=== PATIENT | female | born 1980 | race Caucasian/White ===

== ENCOUNTER 2020-02-21 12:01 | Outpatient (REF) | payer BC, SELFPAY | END 2020-02-21 12:02 | disposition home or self-care (01) | LOC: HO.LAB 12:01 | PROVIDERS: PCP Internal Medicine; Visit Provider Internal Medicine | DX: Z20.828 Contact with and (suspected) exposure to other viral communicable diseases (principal) | CPT/HCPCS: C9803; U0003 ==

== ENCOUNTER 2023-02-23 07:12 | Outpatient (REF) | payer OTHER, SELFPAY ==
[2023-02-23 07:56] LABS: Alanine Aminotransferase 10 U/L (0-31); Albumin Level 4.5 g/dL (3.5-5.0); Alkaline Phosphatase 55 U/L (39-117); Anion Gap 13 (12-20); Aspartate Amino Transferase 17 U/L (5-31); Bilirubin Total 0.5 mg/dL (0.0-1.0); Blood Urea Nitrogen 13 mg/dL (9-16); Calcium 9.3 mg/dL (8.4-10.2); Carbon Dioxide 24 mmol/L (22-29); Chloride 108 mmol/L (96-108); Cholesterol 179 mg/dL (<200); Estimated Glomerular Filt Rate > 60; Glucose Random 95 mg/dL (60-115); HDL Cholesterol 48 mg/dL (>40); LDL Cholesterol Calculated 111 mg/dL (<100); Potassium 4.5 mmol/L (3.3-5.1); Sodium 140 mmol/L (135-145); Total Protein 7.4 g/dL (6.5-8.0); Triglycerides 100 mg/dL (<150)
[2023-02-23 08:10] LABS: Thyroid Stimulating Hormone 1.25 uIU/mL (0.32-4.0)
== END 2023-02-23 07:13 | disposition home or self-care (01) ==
LOC: HO.LAB 07:12
PROVIDERS: PCP Internal Medicine; Visit Provider Physician Assistant Medical
DX: Z00.00 Encounter for general adult medical examination without abnormal findings (principal)
CPT/HCPCS: 36415; 80053; 80061; 84443

== ENCOUNTER 2023-09-25 15:35 | Outpatient (REF) | payer OTHER, SELFPAY ==
[2023-09-27 12:42] LABS: H Pylori Breath Test Negative (Negative)
== END 2023-09-25 15:36 | disposition home or self-care (01) ==
LOC: HO.LNP 15:35
PROVIDERS: Visit Provider Internal Medicine Gastroenterology
DX: Z11.2 Encounter for screening for other bacterial diseases (principal)
CPT/HCPCS: 83013

== ENCOUNTER 2023-10-16 14:03 | Outpatient (REF) | payer OTHER, SELFPAY ==
[2023-10-17 08:19] LABS: Immunoglobulin A 212 mg/dL (47-310)
[2023-10-17 20:53] LABS: Transglutaminase Ab IgG 1.2 U/mL
== END 2023-10-16 14:04 | disposition home or self-care (01) ==
LOC: HO.LAB 14:03
PROVIDERS: PCP Internal Medicine; Visit Provider Nurse Practitioner Primary Care
DX: R14.0 Abdominal distension (gaseous) (principal)
CPT/HCPCS: 36415; 82784; 86364

== ENCOUNTER 2024-08-07 07:50 | Outpatient (REF) | payer OTHER, SELFPAY ==
--- OUTSIDE RECORDS SUMMARY | 2024-08-07 07:54 | XMS_ITS | Clinical Summary ---
Author Organization [facility] [address] [facility] Address [address] [place] [address] Phone Care Team Providers Care Manager Med Surg Name Role Phone Barbie Fitzgerald MD Primary Care Provider [phone] Allergies Active Allergy Reactions Criticality Noted Date Comments Azithromycin 04/10/2020 Other 11/18/2010 Sulfamethoxazole-Trimethoprim Nausea And Vomiting 07/10/2014 Medications LEVONORGESTREL UTRN by intrauterine route. Active traZODone (DESYREL) 100 mg tablet Take 1 tablet (100 mg total) by mouth at bedtime as needed for sleep. 90 tablet 5 Active omeprazole (PriLOSEC) [address] capsule Take 1 capsule (40 mg total) by mouth 1 (one) time each day. 90 each 5 Active Active Problems Problem Noted Date Diagnosed Date GERD (gastroesophageal reflux disease) 5 Insomnia 10/09/2020 Kidney stone 03/06/2013 Depression 07/11/2011 Anxiety 07/11/2011 Immunizations Name Administration Dates Next Due Hepatitis B (Hchyshq-E-Xppgt , Recombivax HB-Adult) 19yo and older 05/29/2013,02/20/2013,01/23/2013 Influenza Quadravalent, MDCK , 0.5ml, preservative free (Flucelvax) 6mo and older 03/03/2023,01/03/2022 Influenza trivalent, with pr eservative (Fluzone; Afluria) 6mo and older 12/24/2019,11/19/2012 Influenza, Unspecified 01/03/2024 Moderna SARS-CoV-2 COVID-19, mRNA, LNP-S, preservative free 05/14/2020,04/29/2020,04/23/2020 PPD Test 11/19/2012 Td Tetanus diptheria (Tdvax) 7yo and older 06/30 Tdap Tetanus diptheria acell ular pertussis (Boostrix; Adacel) 7yo and older 02/12/2010 Surgical History Surgery Date Site/Laterality Comments OTHER SURGICAL HISTORY PROCEDURE: DENIES PREVIOUS SURGERY Medical History Medical History Date Comments Anxiety DX:Anxiety GERD (gastroesophageal reflux disease) 04/17/2024 Family History Medical History Relation Name Comments No Known Problems Brother x2 healthy brothers Breast cancer Cousin Heart attack Father Diabetes Maternal Grandmother CKD Other: CKD Mother HTN, smoker, pr e-DM Breast cancer Mother's side mom's cousin No Known Problems Sister x1 healthy sister Colon cancer Uncle Maternal Blindness Neg Hx Cataracts Neg Hx Glaucoma Neg Hx Macular degeneration Neg Hx Ovarian cancer Neg Hx Strabismus Neg Hx Uterine cancer Neg Hx Relation Name Status Comments Brother Alive Cousin Alive Father Maternal Grandmother Alive Mother Alive Mother's side Sister Alive Uncle Maternal Alive Social History Tobacco Use Types Packs/Day Years Used Date Smoking Tobacco: Former Cigarettes Q uit: 10/14/2020 Smokeless Tobacco: Never Tobacco Cessation:Counseling Given: Not Answered Alcohol Use Standard Drinks/Week Comments Yes 0 (1 standard drink = 0.6 oz pur e alcohol) occ Housing Instability Answer Date Recorde d Are you worried that in the next 2 months you may not have stable housing? No 04/17/2024 Food Access & Nutrition Answer Date Rec orded Do you have access to a vari ety of food including fruits and vegetables? No 04/17/2024 Access to Healthcare Answer Date Record ed Within the last 3 months, kaley w many times did you visit the [...] for your loved ones. For example, child care giver or elderly care for an older adult? [...] Date Recorded What is your living situation? 0 04/17/2024 Comments No Sex and Gender Information Value Date Recorded Sex Assigned at Female 02/14/2024 6:35 PM EST Legal Sex Female 10:41 AM EST Gender Identity Female 02/14/2024 6:35 PM EST Sexual Orientation Straight 02/14/2024 6: 35 PM EST Obstetrics History Para Term AB IAB SAB Ectopic Multiple Livin g Live Births 1 Last Filed Vital Signs Vital Sign Reading Time Taken Comments Blood Pressure 100/70 04/17/2024 10:32 AM EST Pulse 62 04/17/2024 10:32 AM EST Temperature 36.7 ??C (98 ??F) 04/17/2024 10:32 AM EST Respiratory Rate 12 04/17/2024 10:32 AM EST Oxygen Saturation - - Inhaled Oxygen Concentration - - Weight 58.7 kg (129 lb 8 oz) 04/17/2024 10:32 AM EST Height 157.5 cm (5' 2 ) 04/17/2024 10:32 AM EST Body Mass Index 23.69 04/17/2024 10:32 AM EST Plan of Treatment Upcoming Encounters Date Type Department Care Team (Late st Contact Info) Description 09/24/2024 2:15 PM EDT Office Visit Obstetrics and Gynecology - [facility] [address] [facility] [place] [address] Marleen Nava, PHAM [address] [place] [address] 04/25/2025 3:00 PM EST Office Visit Adult Medicine [address] [phone] Barbie Fitzgerald MD [address] [place] [address] Health Maintenance Due Date Last Done Comments Hepatitis C Screening 02/01/2022 Depression Screening 04/17/2025 04/17/2024 Social Influencers of Health Screening 04/17/2025 04/17/2024 Cervical Cancer Screening: HPV 05/08/2025 05/08/2020 Cholesterol Screening (Lipid Panel) 06/30/2025 06/30/2020 Breast Cancer Screening 02/23/2026 02/24/2024, 12/24 DTaP,Tdap,and Td Vaccines (3 - Td or Tdap) 06/30/2030 06/30/2020, 02/12/2010 Hepatitis B Vaccines Completed 05/29/2013, 02/20/2013, 01/23/2013 HIV Screening Completed 08/24/2013 COVID-19 Vaccine Discontinued 01/07/2021, 01/2021, 04/29/2020, Additional history exists Influenza Vaccine Completed 01/03/2024, , 01/03/2022, Additional history exists HIB Vaccines Aged Out No longer eligi ble based on patient's age to complete this topic HPV Vaccines Aged Out No longer eligi ble based on patient's age to complete this topic Hepatitis A Vaccines Aged Out No long er eligible based on patient's age to complete this topic IPV Vaccines Aged Out No longer eligi ble based on patient's age to complete this topic MMR Vaccines Aged Out No longer eligi ble based on patient's age to complete this topic Meningococcal ACWY Vaccine Aged Out N o longer eligible based on patient's age to complete this topic Meningococcal B Vaccine Aged Out No l onger eligible based on patient's age to complete this topic Pneumococcal Vaccine: Pediatrics (0 to 5 Years) and At-Risk Patients (6 to 64 Years) Aged Out No longer eligible based on patient's age to complete this topic RSV Immunization Patients Under 20 months Aged Out No longer eligible based on patient's age to complete this topic Varicella Vaccines Aged Out No longer eligible based on patient's age to complete this topic Procedures Procedure Name Priority Date/Time Associated Diagnosis Comments MG MAMMO DIGITAL SCREENING W MANDEEP BILAT Routine 02/24/2024 9:35 AM EST Encounter for screening mammogram for breast cancer LIPID PANEL Routine 06/30/2020 HPV Routine 05/08/2020 HIV SCREENING Routine 08/24/2013 from Last 3 Months or Most Recently Relevant to Health Maintenance Results * MG Mammo Digital Screening w Mandeep bilat (02/24/2024 9:35 AM EST) Anatomical Region Laterality Modality Breast Bilateral Mammography 04/08/2024 3:37 PM EST Impressions 04/08/2024 3:38 PM EST No evidence of breast malignancy. BI-RADS CATEGORY: 2 - BENIGN RECOMMENDATION: Screening bilateral mammogram is recommended in 1 year. Mammo Location: [facility], [address] [place] [address], [id number], . -------- FINAL REPORT -------- Dictated By: Nemo Maxwell Dictated Date: 04/08/2024 15:37 ET Assigned Physician: Nemo Maxwell Reviewed and Electronically Signed By: Nemo Maxwell Signed Date: 04/08/2024 15:38 ET Workstation ID: [id number] Transcribed By: Self Edit Transcribed Date: 04/08/2024 15:37 ET Narrative 04/08/2024 3:38 PM EST CLINICAL: 43 years old, Female, routine annual exam. COMPARISON: 01/03/2023, 12/24/2022 and 03/25/2014 ?? TECHNIQUE: Bilateral MLO and CC views were obtained digitally with 3-D mammogram (digital breast tomosynthesis). Computer-aided detection was utilized in evaluation of this exam (CAD). FINDINGS: There is no evidence of suspicious mass or architectural distortion. ??No worrisome calcifications are evident. ??There has been no significant change from prior exam(s). ? Bilateral oval circumscribed masses consistent with cysts. BREAST DENSITY: C - The breasts are heterogeneously dense which may obscure small masses. Procedure Note Nemo Maxwell MD - 04/08/2024 CLINICAL: 43 years old, Female, routine annual exam. COMPARISON: 01/03/2023, 12/24/2022 and 03/25/2014 TECHNIQUE: Bilateral MLO and CC views were obtained digitally with 3-Dmammogram (digital breast tomosynthesis). Computer-aided detection wasutilized in evaluation of this exam (CAD). FINDINGS: There is no evidence of suspicious mass or architectural distortion. Noworrisome calcifications are evident. There has been no significantchange from prior exam(s). Bilateral oval circumscribed massesconsistent with cysts. BREAST DENSITY: C - The breasts are heterogeneously dense which mayobscure small masses. IMPRESSION: No evidence of breast malignancy. BI-RADS CATEGORY: 2 - BENIGN RECOMMENDATION: Screening bilateral mammogram is recommended in 1 year. Mammo Location: [facility], [address] [place] [address], [id number], . -------- FINAL REPORT -------- Dictated By: Hans, Nemo Dictated Date: 04/08/2024 15:37 ET Assigned Physician: Nemo Maxwell Reviewed and Electronically Signed By: Nemo Maxwell Signed Date: 04/08/2024 15:38 ET Workstation ID: [id number] Transcribed By: Self Edit Transcribed Date: 04/08/2024 15:37 ET Self Referral Sppl IMG BI PROCEDURES Final Resul t * (ABNORMAL) Lipid panel (06/30/2020) Pathologist [facility] LDL/HDL Ratio 2 0 - 4 Triglycerides 151(A) 0 - 150 mg/dL Cholesterol 148 0 - 200 mg/dL HDL 65 >=40 mg/dL LDL Cholesterol 53 0 - 100 mg/dL Blood Venous blood specimen / Unknown Result [facility] Historical Provider MD LAB BLOOD ORDERABLES Sapna l Result * Cervical Cancer Screening: HPV (05/08/2020) [facility] Cervical Cancer Screening: HPV Negative abstracted Historical Provider HEALTH MAINTENANCE Final Result * HIV Screening (08/24/2013) [facility] HIV Screening abstracted Historical Provider HEALTH MAINTENANCE Final Result from Last 3 Months or Most Recently Relevant to Health Maintenance Insurance [facility] Care Teams Manager Med Surg Relationship Specialty Start Date End Date Barbie Fitzgerald MD [address] [place] [id number] PCP - General Internal Medicine 04/16/24
[2024-08-07 08:14] LABS: MANUAL DIFF FLAG NO
[2024-08-07 08:20] LABS: Basophils Absolute Auto 0.1 X10*3/uL (0.0-0.2); Basophils Percent Auto 0.8 % (0-2); Eosinophils Absolute Auto 0.2 X10*3/uL (0.0-0.4); Eosinophils Percent Auto 2.9 % (0-4); Hemoglobin 14.4 g/dl (12.0-16.0); Imm Gran Abs Auto 0.02 X10*3/uL (0.00-0.03); Imm Gran Pct Auto 0.3 % (0.0-0.4); Lymphocytes Absolute Auto 2.8 X10*3/uL (1.2-4.9); Lymphocytes Percent Auto 41.6 % (20-40); Mean Corpuscular HGB Conc 34.3 g/dl (31.0-35.0); Mean Corpuscular Hemoglobin 30.5 pg (27.0-33.0); Mean Platelet Volume 8.7 fL (9.4-12.3); Monocytes Absolute Auto 0.3 X10*3/uL (0.1-1.2); Monocytes Percent Auto 4.4 % (2-11); Neutrophils Absolute Auto 3.3 x10*3/uL (2.0-8.3); Platelet Count 259 X10*3/uL (160-400); Red Blood Count 4.72 X10*6/uL (4.20-5.50); Red Cell Distribution Width 12.9 % (11.0-16.0); White Blood Count 6.7 X10*3/uL (4.8-10.8)
[2024-08-07 08:27] LABS: Estimated Average Glucose 105 mg/dL; Hemoglobin A1C 130.3444 umol/L; Hemoglobin A1c % 5.3 % (<6.0)
[2024-08-07 09:26] LABS: Alanine Aminotransferase 23 U/L (0-31); Albumin Level 4.9 g/dL (3.5-5.0); Anion Gap 14 (12-20); Aspartate Amino Transferase 27 U/L (5-31); Bilirubin Total 0.7 mg/dL (0.0-1.0); Blood Urea Nitrogen 17 mg/dL (9-16); Calcium 9.7 mg/dL (8.4-10.2); Carbon Dioxide 26 mmol/L (22-29); Chloride 106 mmol/L (96-108); Cholesterol 200 mg/dL (<200); Estimated Glomerular Filt Rate > 60; Glucose Random 90 mg/dL (60-115); HDL Cholesterol 61 mg/dL (>40); LDL Cholesterol Calculated 127 mg/dL (<100); Potassium 4.3 mmol/L (3.3-5.1); Sodium 142 mmol/L (135-145); Total Protein 7.7 g/dL (6.5-8.0); Triglycerides 61 mg/dL (<150)
[2024-08-07 13:06] LABS: Alkaline Phosphatase 63 U/L (39-117)
[2024-08-07 14:10] LABS: Reflex LDLD? No
[2024-08-08 02:59] LABS: Triiodothyronine T3 Free 3.4 pg/mL (2.3-4.2)
== END 2024-08-07 07:51 | disposition home or self-care (01) ==
LOC: HO.LAB 07:50
PROVIDERS: PCP Internal Medicine; Visit Provider Physician Assistant
DX: Z00.00 Encounter for general adult medical examination without abnormal findings (principal); Z13.1 Encounter for screening for diabetes mellitus; Z13.6 Encounter for screening for cardiovascular disorders
CPT/HCPCS: 36415; 80053; 80061; 83036; 84443; 84481; 85025

== ENCOUNTER 2024-09-20 08:07 | Outpatient (REF) | payer OTHER, SELFPAY ==
--- OUTSIDE RECORDS SUMMARY | 2024-09-20 08:10 | XMS_ITS | Encounter Summary ---
Author Organization [facility] Address [address] [place] [address] Care Team Providers Care Bag Maker Name Role Phone Barbie Fitzgerald MD Primary Care Provider [phone] Encounter Details Date Type Department Care Team ([facility] st Contact Info) Description 09/18/2024 Telephone Gastroenterology - [place] [address] [place] [phone] Laxmi Gr NP 175 [facility] [address] [place], [place] [id number] Social History Tobacco Use Types Packs/Day Years [...] ed Within the last 3 months, kaley vickers many times did you visit the emergency [...] your loved ones. For example, child care attendant or elderly care for an older adult? [...] PM EST documented as of this encounter Progress Notes * Eva Gonsalves MA - 09/18/2024 1:05 PM EDT scheduled * Eva Gonsalves MA - 09/18/2024 1:00 PM EDT 1st attempt to schedule an appointment patient left message to call back * Laxmi Gr NP - 09/18/2024 11:47 AM EDT Please schedule diagnostic EGD for epigastric abdominal pain next available. I will determine if colonoscopy is needed after she completes stool studies. Thank you. documented in this encounter Plan of Treatment Upcoming Encounters Date Type Department Care Team (Late st Contact Info) Description 10/07/2024 11:00 AM EDT Appointment [facility] Endoscopy [address] [place] [phone] Jonathan Wagner DO [address] [address] 11/14/2024 2:20 PM EDT Office Visit Gastroenterology - [place] [address] [facility] [address] [phone] Laxmi Gr NP [address] [address] 04/25/2025 3:00 PM EST Office Visit Adult Medicine [facility] [address] [place] [phone] Barbie Fitzgerald MD [address] [place] [address] documented as of this encounter Visit Diagnoses Not on filedocumented in this encounter Additional Health Concerns Infection Onset Date Last Indicated Resolved Time C. difficile Rule-Out 09/18/2024 09/18/2024 Gastrointestinal Rule-Out 09/18/2024 09/18/2024 Assessment Noted Time PHQ-9 Depression Total Score: 5 04/17/19 25 10:42 AM EST documented as of this encounter Care Teams Bag Maker Relationship Specialty Start Date End Date Barbie Fitzgerald MD [address] [place] [address] PCP - General Internal Medicine 04/16/24 documented as of this encounter
--- OUTSIDE RECORDS SUMMARY | 2024-09-20 08:11 | XMS_ITS | Encounter Summary ---
Author Organization [facility] Address [address] [facility] [address] [place] [address] Phone Care Team Providers Care Petroleum Inspector Supervisor Name Role Phone Jae Rodríguez MD Primary Care Provider [phone] Encounter Details Date Type Department Care Team (Latest Contact Info) Description 12/25/2019 Transcribe Orders Virtual Department [address] [place] [address] Zion Massey MD [address] [place] [address] [email or web address] Muscle ache (Primary Dx) Social History Tobacco Use Types Packs/Day Years Used Date Smoking Tobacco: Never Assessed Comments Unknown Sex and Gender Information Value Date Recorded Sex Assigned at Not on file Legal Sex Female 4:01 PM EDT Gender Identity Not on file Sexual Orientation Not on file documented as of this encounter Plan of Treatment Not on file documented as of this encounter Results * COVID-19 PCR Order (12/25/2019 3:21 PM EDT) Specimen Source [facility] Comment:Corrected on 12/24 A T 1538: previously reported as NASOPHARYNGEAL SWAB ([place] LOCATION MANAGER) COVID Testing Status In-house testing being performed [facility] Symptomatic? YES [facility] Other 12/25/2019 3:21 PM EDT 12/25/2019 3:37 PM EDT us Zion Massey MD BODY FLUIDS AND STOOLS ORDER [place] Edited Result - Final [facility] [address] [place] [address] documented in this encounter Visit Diagnoses Diagnosis Muscle ache- Primary Unspecified myalgia and myositis documented in this encounter Additional Health Concerns Infection Onset Date Last Indicated Resolved Time CoV-Risk 12/25/2019 12/25/2019 01/08/2020 1:23 AM EST documented as of this encounter Care Teams Petroleum Inspector Supervisor Relationship Specialty Start Date End Date Jae Rodríguez MD [address] [place] [address] PCP - General Internal Medicine 12/25/19 documented as of this encounter Additional Source Comments The information contained in this document represents components of the legal health record. It is not the complete legal health record.[facility]
[2024-09-20 09:07] LABS: CDiff Gene PCR NEGATIVE (Negative)
[2024-09-20 10:13] LABS: E. coli EAEC Not Detected (Not Detect.); E. coli EPEC Not Detected (Not Detect.); E. coli ETEC Not Detected (Not Detect.); E. coli STEC Not Detected (Not Detect.); Shigella sp./EIEC Not Detected (Not Detect.)
== END 2024-09-20 08:08 | disposition home or self-care (01) ==
LOC: HO.LNP 08:07
PROVIDERS: Visit Provider Nurse Practitioner Primary Care
DX: R10.13 Epigastric pain (principal); R19.7 Diarrhea, unspecified
CPT/HCPCS: 87493; 87507

== ENCOUNTER 2024-12-10 10:26 | Outpatient (AMB) | payer OTHER, SELFPAY ==
--- OUTSIDE RECORDS SUMMARY | 2023-12-25 08:59 | XMS_ITS | Encounter Summary ---
Author Organization [facility] Address [address] [place] [address] Care Team Providers Care Gelatin Plant Supervisor Name Role Phone Barbie Fitzgerald MD Primary Care Provider [phone] Encounter Details Date Type Department Care Team (Latest Contact Info) Description 12/25/2023 8:59 AM EDT Hospital Encounter TH HISTORIC ENCOUNTERS EASTERN CONVERSION ONLY Devi Gr, EMT/DISPATCHER [address] [place] [address] Epigastric pain Social History Tobacco Use Types [...] care for your loved ones. For example, director maternal child or elderly care for an older adult? [...] 3:00 PM EST Office Visit Adult Medicine [address] [address] Barbie Fitzgerald MD [address] [place] [address] documented as of this encounter Procedures Procedure Name Priority Date/Time Associated Diagnosis Comments CR UGI W AIR ROUTINE Routine 12/25/2023 3:52 PM EDT Epigastric pain documented in this encounter Results * CR UGI W AIR ROUTINE (12/25/2023 3:52 PM EDT) Anatomical Region Laterality Modality Radiographic Sussy ging 12/25/2023 9:20 AM EDT Narrative 12/25/2023 3:52 PM EDT [facility] Diagnostic Imaging Department [address] [place] [address] Patient: ALLABECK /Age/Sex: 1980 - 43 - F Unit#: [id number] Location/Status: SPDIGEN/REG CLI Mnemonic/Ordering Site: [facility] Ordering Physician: DEVI GR APRN CR UGI W Air Routine - 12/25/23 - 1159 Report Status:Signed FINDINGS: Double contrast UGI performed. COMPARISON: None HISTORY: Patient is a 43-year-old female with history of refractory GERD. DIET KITCHEN COOK radiographs: Church History Teacher AP radiograph of the abdomen obtained. Bowel [...] Dic Date/Time: 12/25/23 1206 Sign date/Time: 12/25/23 6232 Procedure Note Joel Barajas MD - 01/02/2024 [facility] Diagnostic Imaging Department [address] [place] [address] Patient: BECK REYES/Age/Sex: 1980 - 43 - F Unit#: [id number] Location/Status: SPDIGEN/REG CLI Mnemonic/Ordering Site: [facility] Ordering Physician: DEVI GR APRN CR ERVIN Siegel Air Routine - 12/25/23 - 0953 Report Status:Signed FINDINGS: Double contrast UGI performed. COMPARISON: None HISTORY: Patient is a 43-year-old female with history of refractoryGERD. DIET KITCHEN COOK radiographs: Church History Teacher AP radiograph of the abdomen obtained. Bowelgas [...] 1206 Sign date/Time: 12/25/23 1552 Devi Gr EMT/DISPATCHER IMG XR PROCEDURES Final Result documented in this encounter Visit Diagnoses Diagnosis Epigastric pain Abdominal pain, epigastric documented in this encounter Additional Health Concerns Infection Onset Date Last Indicated Resolved Time C. difficile Rule-Out 09/18/2024 09/18/20242024 7:05 PM EDT Gastrointestinal Rule-Out 09/18/2024 09/18/2024 7:05 PM EDT documented as of this encounter Care Teams Gelatin Plant Supervisor Relationship Specialty Start Date End Date Barbie Fitzgerald MD PCP - General 02/15/22 04/15/24 documented as of this encounter
--- NOTE | 2024-12-10 10:34 | A.OFFVIS_ITS ---
Vital Signs 12/10/24 10:44 Height 5 ft 2 in BP 118/72 Blood Pressure Location Lt brachial Position Sitting Intake Visit Reasons: iud check Intake Note: mirena iud placed in 2020 thru [facility] and want to check that it is in place having no issues Information Interpreted: non-clinical & clinical Pet Care Assistant: Pet Care Assistant Present (kacie) Accompanied by: Self / Same As Patient Allergies erythromycin base Allergy (Intermediate, Verified 12/10/24 10:39) rash bactrim Allergy (Intermediate, Uncoded 12/10/24 10:39) body rash Medication List - Last Reconciled 12/10/24 by Amber Galvan LPN famotidine 40 mg PO BEDTIME levonorgestrel (Mirena) intrauterine pantoprazole 40 mg PO DAILY Is last menstrual period known: No Post menopausal: No Patient : No Do you need a note to return to daycare/school/sports/work: No HPI Comments Details: Presenting for annual exam with Mirena IUD check complaining of right breast lump with no associated nipple discharge or any other concerns Mirena IUD inserted in 2020 for contraception Last co testing 2020 was normal according to patient no records available Last screening mammogram was BI-RADS 2 in 04/30 [facility] Medical History Cystic breast Social History Household Members: Significant Other and Children Housing: House Comment: once a month Patient Tobacco Use Status: Former Tobacco user Current occupational status: employed Current occupation: [employer] Female Reproductive History Menstrual Age of Menarche: 12 control method: progestin IUCD Total pregnancies: 1 Number of Living Children: 1 Date of last pap smear: 12/10/20 History of abnormal pap smear: No Date of Mammogram: 03/04/24 Review of Systems Const All systems reviewed & are unremarkable except as noted in HPI and below Card Reports as per HPI Resp Reports as per HPI GI Reports as per HPI and Reports no additional complaints Reports as per HPI Physical Exam Vital Signs: Last Vital Signs BP 118/72 12/10/24 10:44 Const General: cooperative, healthy appearing and comfortable Chest Chest palpation & inspection: normal inspection of the chest and normal palpation of entire chest wall Breast/axilla inspection: inspection of breasts abnormal (Right breast for send need to lump 4 cm from the nipple at 11:00, left wnl) and normal inspection of the axillae Breast/axilla palpation: normal palpation of the breasts, normal palpation of the axillae and no axillary lymphadenopathy Resp Effort & Inspection: normal respiratory effort Auscultation: clear to auscultation bilaterally Percussion: percussion normal Cardio Palpation: normal PMI Rate: regular rate Rhythm: regular rhythm Heart sounds: no murmurs and no rubs Peripheral pulses: Peripheral pulses 2+ throughout GI Inspection: Yes normal to inspection Palpation (GI): Soft to palpation, nontender, no guarding, not rigid and No hepatosplenomegaly present Percussion: Yes normal to percussion Auscultation: normal bowel sounds Rectal Exam - Female: deferred General: Yes bladder normal to palpation External Female Exam: No lesion Speculum Exam - Vagina: normal appearance of the vagina, normal palpation, normal vaginal discharge and not erythematous Speculum Exam - Cervix: normal appearance of the cervix and normal palpation Bimanual exam- vagina & uterus: normal bimanual exam, normal palpation, uterine size normal, bladder normal to palpation, consistency normal and normal palpation Bimanual Exam- Adnexa, other: normal adnexae, no masses and no tenderness Assessment & Plan Assessment & Plan (1) Well woman exam: Code(s): Z01.419 - Encounter for gynecological examination (general) (routine) without abnormal findings Category: Medical Plan: Cotesting done. Instructions given the patient to schedule next screening Mammogram in 05/01. Counseled the patient about the recommended dietary allowance of 1000 mg of Calcium & 600 IU of vitamin D. The patient was instructed to perform monthly self-breast exams and to schedule an annual exam in a year; All questions answered and the patient verbalized understanding. Instructed the patient to schedule annual exam in a year (2) IUD check up: Code(s): Z30.431 - Encounter for routine checking of intrauterine contraceptive device Category: Medical Plan: UPT done in the office was negative. Discussed with the patient the finding on physical exam, IUD string in place, the patient was reassured. Instructions given to patient to call if mammogram is abnormal for possible removal of the IUD since it is progesterone IUD and there is an increase in the risk of breast cancer with long-term use, especially with her right breast lump in addition to call in case of temperature above 100.4, severe cramping/pelvic pain, abnormal discharge or abnormal uterine bleeding or if she misses her menstrual cycle. Otherwise follow-up at her annual exam appointment. All questions answered, the patient verbalized understanding. (3) Breast lump on left side at 11 o'clock position: Comment: 4 cm in size, 4 cm from the nipple Code(s): N63.22 - Unspecified lump in the left breast, upper inner quadrant Category: Medical Plan: Discussed with the patient the finding on Breast exam (breast lump) .The differential diagnosis includes but not limited to lump/cyst/pre cancer/cancer or dense breast tissue. The work up includes breast US and diagnostic mammogram and referred the patient for surgical breast consult. Instructed the patient to call our office back in case a referral appointment is not scheduled, missed or canceled so that we will assist on rescheduling another appointment, the patient verbalized understanding agreed with the plan. Orders: Orders MM tomosynthesis diagnostic RT Today N63.22 - Unspecified lump in the left breast, upper inner quadrant US breast RT limited Today N63.22 - Unspecified lump in the left breast, upper inner quadrant Referrals General Surgery Referral N63.22 - Unspecified lump in the left breast, upper inner quadrant Coding Level of Care Code New Pt Level 3 (69250) New Pt Prev Care 40-64y(48388) Diagnoses Well woman exam Z01.419 IUD check up Z30.431 Breast lump on left side at 11 o'clock position N63.22
[2024-12-10 10:44] VITALS: BP 118/72
--- OUTSIDE RECORDS SUMMARY | 2024-12-10 12:33 | XMS_ITS | Clinical Summary ---
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 Active omeprazole (PriLOSEC) [address] capsule Take 1 capsule (40 mg total) by mouth 1 (one) time each day. Do not crush or chew. 90 capsule 1 5 Active traZODone (DESYREL) 100 mg tablet Take 1 tablet (100 mg total) by mouth at bedtime as needed for sleep. 90 tablet 1 5 Active bisacodyL (DULCOLAX) 5 mg EC tablet Take 2 tablets by mouth right before beginning bowel prep. See instructions provided by the office 2 tablet 5 Active polyethylene glycol (MIRALAX) 17 gram packet Empty 8 ounces of Miralax into 128 ounces (1 gallon) of Gatorade, mix well. Starting at 4pm the night before procedure drink as tolerated until half of the total amount is completed. Give 4 hours break, then finish the remainder 227 g 5 Active Active Problems Problem Noted Date Diagnosed Date GERD (gastroesophageal reflux disease) 5 Insomnia 10/09/2020 Kidney stone 03/06/2013 Depression 07/11/2011 Anxiety 07/11/2011 Encounters Date Type Department Care Team Description 10/07/2024 11:06 AM EDT Anesthesia Event [facility] [address] [place] [phone] Abhi Briceno MD 10/07/2024 10:04 AM EDT - 10/07/2024 11:59 PM EDT Hospital Encounter [facility] [address] [place] [phone] Gualberto Wagner DO Epigastric abdominal pain; Diarrhea, unspecified type Discharge Disposition: Home or Self Care 09/23/2024 Telephone Gastroenterology [facility] 175 [facility] [address] [phone] Laxmi Gr NP 09/18/2024 11:00 AM EDT Office Visit Gastroenterology [facility] 175 [facility] [address] [phone] Laxmi Gr, PORSHA Epigastric abdominal pain (Primary Dx); Diarrhea, unspecified type; Gastroesophageal reflux disease without esophagitis 09/18/2024 Telephone Gastroenterology [facility] 175 [facility] [address] [phone] Laxmi Gr NP from Last 3 Months Immunizations Immunization Administration Dates Next Due Hepatitis B (Lgmizga-F-Tqxya , Recombivax HB-Adult) 19yo and older 05/29/2013,02/20/2013,01/23/2013 [...] Comments Anxiety DX:Anxiety GERD (gastroesophageal reflux disease) H/O gastritis Hernia, internal HIATAL Family History Medical History Relation Name Comments [...] care for your loved ones. For example, attendant child activity or elderly care for an older adult? [...] Sign Reading Time Taken Comments Blood Pressure 119/66 10/07/2024 11:47 AM EDT Pulse 54 10/07/2024 11:47 AM EDT Temperature 36.2 C (97.1 F) 10/07/2024 10:32 AM EDT Respiratory Rate 16 10/07/2024 11:47 AM EDT Oxygen Saturation 95% 10/07/2024 11:47 AM EDT Inhaled Oxygen Concentration - - Weight 53.1 kg (117 lb) 10/07/2024 10:32 AM EDT Height 157.5 cm (5' 2 ) 10/07/2024 10:32 AM EDT Body Mass Index 21.4 10/07/2024 10:32 AM EDT Plan of Treatment Upcoming Encounters Date Type Department Care Team (Late st Contact Info) Description 04/25/2025 3:00 PM EST Office Visit Adult Medicine [facility] [address] [place] [address] Barbie Fitzgerald MD [address] [place] [address] Health Maintenance Due Date Last Done Comments HPV Vaccines (1 - 3-dose SCDM series) 2008 Hepatitis C Screening 02/01/2022 Influenza Vaccine (#1) 2024 , 12/15/2023, 03/03/2023, Additional history exists Social Influencers of Health Screening 04/17/2025 04/17/2024 Cervical Cancer Screening: HPV 05/08/2025 05/08/2020 Cholesterol Screening (Lipid Panel) 06/30/2025 06/30/2020 Breast Cancer Screening 02/23/2026 02/24/2024, 12/24 DTaP,Tdap,and Td Vaccines (3 - Td or Tdap) 06/30/2030 06/30/2020, 02/12/2010 Colorectal Cancer Screening: Colonoscopy 10/07/2034 10/07/2024 RSV Immunization Adult Patients (1 - 1-dose 75+ series) 2056 Hepatitis B Vaccines Completed 05/29/2013, 02/20/2013, 01/23/2013 HIV Screening Completed 08/24/2013 COVID-19 Vaccine Discontinued 01/07/2021, 01/2021, 04/29/2020, Additional history exists Depression Screening Completed 04/17/2024 HIB Vaccines Aged Out No longer eligi [...] 5 Years) and At-Risk Patients (6 to 49 Years) Aged Out No longer eligible based on patient's age to complete this topic RSV Immunization Patients Under 20 months Aged Out No longer eligible based on patient's age to complete this topic Varicella Vaccines Aged Out No longer eligible based on patient's age to complete this topic Procedures Procedure Name Priority Date/Time Associated Diagnosis Comments COLONOSCOPY Routine 10/07/2024 11:26 AM EDT Diarrhea, unspecified type EGD Routine 10/07/2024 11:26 AM EDT Epigastric abdominal pain TISSUE EXAM Routine 10/07/2024 11:13 AM EDT Epigastric abdominal pain Diarrhea, unspecified type MG MAMMO DIGITAL SCREENING W MANDEEP BILAT Routine 02/24/2024 9:35 AM EST Encounter for screening mammogram for breast cancer LIPID PANEL Routine 06/30/2020 HPV Routine 05/08/2020 HIV SCREENING Routine 08/24/2013 from Last 3 Months or Most Recently Relevant to Health Maintenance Results * COLONOSCOPY Anesthesia - MAC; [facility] ENDOSCOPY (10/07/2024 11:26 AM EDT) Anatomical Region Laterality Modality Endoscopy 10/07/2024 10:4 1 AM EDT Impressions 10/07/2024 11:26 AM EDT - Hemorrhoids found on perianal exam. - One 5 mm polyp in the sigmoid colon, removed with a cold snare. Resected and retrieved. - The examined portion of the ileum was normal. - The entire examined colon is normal. Biopsied. Recommendation: - Discharge patient to home. - Resume previous diet. - Continue present medications. - Await pathology results. Narrative 10/07/2024 11:26 AM EDT [facility] GI Patient Name: Beck Reyes Procedure Date: 10/07/2024 10:41 AM Date of : 1980 Age: 44 Gender: Female Note Status: Finalized Attending MD: Gualberto Wagner DO, [id number] Procedure Date No Time: 10/07/2024 Procedure: Colonoscopy Indications: Chronic diarrhea Providers: Gualberto Wagner DO Referring MD: Barbie Fitzgerald MD Medicines: Monitored Anesthesia Care Complications: No immediate complications. Estimated blood loss: Minimal. Estimated Blood Loss: Estimated blood loss was minimal. Procedure: Pre-Anesthesia Assessment: - - Prior to the procedure, a History and Physical was performed, and patient medications and allergies were reviewed. The patient is competent. The risks and benefits of the procedure and the sedation options and risks were discussed with the patient. All questions were answered and informed consent was obtained. Patient identification and proposed procedure were verified by the physician, the nurse, the anesthesiologist, the air conditioning unit tester and the machine packaging technician in the pre-procedure area in the endoscopy suite. Mental Status Examination: alert and oriented. Airway Examination: normal oropharyngeal airway and neck mobility. Respiratory Examination: clear to auscultation. CV Examination: normal. Prophylactic Antibiotics: The patient does not require prophylactic antibiotics. Prior Anticoagulants: The patient has taken no anticoagulant or antiplatelet agents. ASA Grade Assessment: II - A patient with mild systemic disease. After reviewing the risks and benefits, the patient was deemed in satisfactory condition to undergo the procedure. The anesthesia plan was to use monitored anesthesia care (MAC). Immediately prior to administration of medications, the patient was re-assessed for adequacy to receive sedatives. The heart rate, respiratory rate, oxygen saturations, blood pressure, adequacy of pulmonary ventilation, and response to care were monitored throughout the procedure. The physical status of the patient was re-assessed after the procedure. - - Prior to the procedure, a History and Physical was performed, and patient medications and allergies were reviewed. The patient is competent. The risks and benefits of the procedure and the sedation options and risks were discussed with the patient. All questions were answered and informed consent was obtained. Patient identification and proposed procedure were verified by the physician, the nurse, the anesthesiologist, the air conditioning unit tester and the machine packaging technician in the pre-procedure area in the endoscopy suite. Mental Status Examination: alert and oriented. Airway Examination: normal oropharyngeal airway and neck mobility. Respiratory Examination: clear to auscultation. CV Examination: normal. Prophylactic Antibiotics: The patient does not require prophylactic antibiotics. Prior Anticoagulants: The patient has taken no anticoagulant or antiplatelet agents. ASA Grade Assessment: II - A patient with mild systemic disease. After reviewing the risks and benefits, the patient was deemed in satisfactory condition to undergo the procedure. The anesthesia plan was to use monitored anesthesia care (MAC). Immediately prior to administration of medications, the patient was re-assessed for adequacy to receive sedatives. The heart rate, respiratory rate, oxygen saturations, blood pressure, adequacy of pulmonary ventilation, and response to care were monitored throughout the procedure. The physical status of the patient was re-assessed after the procedure. After I obtained informed consent, the scope was passed under direct vision. Throughout the procedure, the patient's blood pressure, pulse, and oxygen saturations were monitored continuously. The Olympus Pediatric Colonoscope was introduced through the anus and advanced to the cecum, identified by appendiceal orifice and ileocecal valve. The colonoscopy was performed without difficulty. The patient tolerated the procedure well. The quality of the bowel preparation was good. Anatomical landmarks were photographed. Findings: Hemorrhoids were found on perianal exam. A 5 mm polyp was found in the sigmoid colon. The polyp was sessile. The polyp was removed with a cold snare. Resection and retrieval were complete. Verification of patient identification for the specimen was done. Estimated blood loss was minimal. The terminal ileum appeared normal. The colon (entire examined portion) appeared normal. Biopsies were taken with a cold forceps for histology. Estimated blood loss was minimal. Procedure Code(s): --- Professional --- 98427, Colonoscopy, flexible; with removal of tumor(s), polyp(s), or other lesion(s) by snare technique 98244, 59, Colonoscopy, flexible; with biopsy, single or multiple Diagnosis Code(s): --- Professional --- K64.9, Unspecified hemorrhoids D12.5, Benign neoplasm of sigmoid colon K52.9, Noninfective gastroenteritis and colitis, unspecified CPT copyright 2020 [employer]. All rights reserved. The codes documented in this report are preliminary and upon gauge operator review may be revised to meet current compliance requirements. GUALBERTO Wagner DO 10/07/2024 11:26:43 AM This report has been signed electronically.uGalberto Wagner DO Number of Addenda: 0 Note Initiated On: 10/07/2024 10:41 AM Scope Withdrawal Time: 0 hours 6 minutes 21 seconds Scope In: 11:16:45 AM Scope Out: 11:25:02 AM Endoscopy Department at [place] [facility] - [address] [place] [phone] Procedure Note Gualberto Wagner DO - 10/07/2024 [facility] GI Patient Name: Beck Reyes Procedure Date: 10/07/2024 10:41 AM Date of : 1980 Age: 44 Gender: Female Note Status: Finalized Attending MD: Gualberto Wagner DO, [id number] Procedure Date No Time: 10/07/2024 Procedure: Colonoscopy Indications: Chronic diarrhea Providers: Gualberto Wagner DO Referring MD: Barbie Fitzgerald MD Medicines: Monitored Anesthesia Care Complications: No immediate complications. Estimated blood loss: Minimal. Estimated Blood Loss: Estimated blood loss was minimal. Procedure: Pre-Anesthesia Assessment: - - Prior to the procedure, a History and Physicalwas performed, and patient medications and allergieswere reviewed. The patient is competent. The risks and benefits of the procedure and the sedation optionsand risks were discussed with the patient. Allquestions were answered and informed consent was obtained. Patient identification and proposed procedure were verified by the physician, the nurse, the anesthesiologist, the air conditioning unit tester and thetechnician in the pre-procedure area in the endoscopy suite. Mental Status Examination: alert and oriented.Airway Examination: normal oropharyngeal airway and neck mobility. Respiratory Examination: clear to auscultation. CV Examination: normal. Prophylactic Antibiotics: The patient does not requireprophylactic antibiotics. Prior Anticoagulants: The patient has taken no anticoagulant or antiplatelet agents. ASA Grade Assessment: II - A patient with mild systemic disease. After reviewing the risks and benefits,the patient was deemed in satisfactory condition to undergo the procedure. The anesthesia plan was touse monitored anesthesia care (MAC). Immediately priorto administration of medications, the patient was re-assessed for adequacy to receive sedatives. The heart rate, respiratory rate, oxygen saturations, blood pressure, adequacy of pulmonary ventilation,and response to care were monitored throughout the procedure. The physical status of the patient was re-assessed after the procedure. - - Prior to the procedure, a History and Physicalwas performed, and patient medications and allergieswere reviewed. The patient is competent. The risks and benefits of the procedure and the sedation optionsand risks were discussed with the patient. Allquestions were answered and informed consent was obtained. Patient identification and proposed procedure were verified by the physician, the nurse, the anesthesiologist, the air conditioning unit tester and thetechnician in the pre-procedure area in the endoscopy suite. Mental Status Examination: alert and oriented.Airway Examination: normal oropharyngeal airway and neck mobility. Respiratory Examination: clear to auscultation. CV Examination: normal. Prophylactic Antibiotics: The patient does not requireprophylactic antibiotics. Prior Anticoagulants: The patient has taken no anticoagulant or antiplatelet agents. ASA Grade Assessment: II - A patient with mild systemic disease. After reviewing the risks and benefits,the patient was deemed in satisfactory condition to undergo the procedure. The anesthesia plan was touse monitored anesthesia care (MAC). Immediately priorto administration of medications, the patient was re-assessed for adequacy to receive sedatives. The heart rate, respiratory rate, oxygen saturations, blood pressure, adequacy of pulmonary ventilation,and response to care were monitored throughout the procedure. The physical status of the patient was re-assessed after the procedure. After I obtained informed consent, the scope was passed under direct vision. Throughout theprocedure, the patient's blood pressure, pulse, and oxygen saturations were monitored continuously. TheOlympus Pediatric Colonoscope was introduced through theanus and advanced to the cecum, identified byappendiceal orifice and ileocecal valve. The colonoscopy was performed without difficulty. The patient tolerated the procedure well. The quality of the bowel preparation was good. Anatomical landmarks were photographed. Findings: Hemorrhoids were found on perianal exam. A 5 mm polyp was found in the sigmoid colon. Thepolyp was sessile. The polyp was removed with a coldsnare. Resection and retrieval were complete. Verificationof patient identification for the specimen was done. Estimated blood loss was minimal. The terminal ileum appeared normal. The colon (entire examined portion) appearednormal. Biopsies were taken with a cold forceps forhistology. Estimated blood loss was minimal. Procedure Code(s): --- Professional --- 74468, Colonoscopy, flexible; with removal of tumor(s), polyp(s), or other lesion(s) by snare technique 10543, 59, Colonoscopy, flexible; with biopsy,single or multiple Diagnosis Code(s): --- Professional --- K64.9, Unspecified hemorrhoids D12.5, Benign neoplasm of sigmoid colon K52.9, Noninfective gastroenteritis and colitis, unspecified CPT copyright 2020 [employer]. All rights reserved. The codes documented in this report are preliminary and upon gauge operator reviewmay be revised to meet current compliance requirements. GUALBERTO Wagner DO 10/07/2024 11:26:43 AM This report has been signed electronically.Gualberto Wagner DO Number of Addenda: 0 Note Initiated On: 10/07/2024 10:41 AM Scope Withdrawal Time: 0 hours 6 minutes 21 seconds Scope In: 11:16:45 AM Scope Out: 11:25:02 AM Endoscopy Department at [facility] - [address] [place] [phone] IMPRESSION: - Hemorrhoids found on perianal exam. - One 5 mm polyp in the sigmoid colon, removed witha cold snare. Resected and retrieved. - The examined portion of the ileum was normal. - The entire examined colon is normal. Biopsied. Recommendation: - Discharge patient to home. - Resume previous diet. - Continue present medications. - Await pathology results. Gualberto Wagner DO GI~PROCEDURE ORDERABLES Final Re sult * EGD Anesthesia - MAC; [facility] ENDOSCOPY (10/07/2024 11:26 AM EDT) Anatomical Region Laterality Modality Endoscopy 10/07/2024 10:4 0 AM EDT Impressions 10/07/2024 11:15 AM EDT - Normal esophagus. - Normal stomach. Biopsied. - Normal examined duodenum. Biopsied. Recommendation: - Discharge patient to home. - Resume previous diet. - Continue present medications. - Await pathology results. - See colonoscopy results. Narrative 10/07/2024 11:15 AM [facility] GI Patient Name: Beck Reyes Procedure Date: 10/07/2024 10:40 AM Date of : 1980 Age: 44 Gender: Female Note Status: Finalized Attending MD: Gualberto Wagner DO, [id number] Procedure Date No Time: 10/07/2024 Procedure: Upper GI endoscopy Indications: Heartburn Providers: Gualberto Wagner DO Referring MD: Barbie Fitzgerald MD Medicines: Monitored Anesthesia Care Complications: No immediate complications. Estimated blood loss: Minimal. Estimated Blood Loss: Estimated blood loss was minimal. Procedure: Pre-Anesthesia Assessment: - - Prior to the procedure, a History and Physical was performed, and patient medications and allergies were reviewed. The patient is competent. The risks and benefits of the procedure and the sedation options and risks were discussed with the patient. All questions were answered and informed consent was obtained. Patient identification and proposed procedure were verified by the physician, the nurse, the anesthesiologist, the air conditioning unit tester and the machine packaging technician in the pre-procedure area in the endoscopy suite. Mental Status Examination: alert and oriented. Airway Examination: normal oropharyngeal airway and neck mobility. Respiratory Examination: clear to auscultation. CV Examination: normal. Prophylactic Antibiotics: The patient does not require prophylactic antibiotics. Prior Anticoagulants: The patient has taken no anticoagulant or antiplatelet agents. ASA Grade Assessment: II - A patient with mild systemic disease. After reviewing the risks and benefits, the patient was deemed in satisfactory condition to undergo the procedure. The anesthesia plan was to use monitored anesthesia care (MAC). Immediately prior to administration of medications, the patient was re-assessed for adequacy to receive sedatives. The heart rate, respiratory rate, oxygen saturations, blood pressure, adequacy of pulmonary ventilation, and response to care were monitored throughout the procedure. The physical status of the patient was re-assessed after the procedure. After obtaining informed consent, the endoscope was passed under direct vision. Throughout the procedure, the patient's blood pressure, pulse, and oxygen saturations were monitored continuously. The Endoscope was introduced through the mouth, and advanced to the third part of duodenum. The upper GI endoscopy was accomplished without difficulty. The patient tolerated the procedure well. Findings: The esophagus was normal. The stomach was normal. Biopsies were taken with a cold forceps for histology. Estimated blood loss was minimal. The examined duodenum was normal. Biopsies were taken with a cold forceps for histology. Estimated blood loss was minimal. Procedure Code(s): --- Professional --- 80475, Esophagogastroduodenoscopy, flexible, transoral; with biopsy, single or multiple Diagnosis Code(s): --- Professional --- R12, Heartburn CPT copyright 2020 [employer]. All rights reserved. The codes documented in this report are preliminary and upon gauge operator review may be revised to meet current compliance requirements. GUALBERTO Wagner DO 10/07/2024 11:15:05 AM This report has been signed electronically.Gualberto Wagner DO Number of Addenda: 0 Note Initiated On: 10/07/2024 10:40 AM Scope In: Scope Out: Endoscopy Department at [facility] - [address] [place] [phone] Procedure Note Gualberto Wagner DO - 10/07/2024 [facility] GI Patient Name: Beck Reyes Procedure Date: 10/07/2024 10:40 AM Date of : 1980 Age: 44 Gender: Female Note Status: Finalized Attending MD: Gualberto Wagner DO, [id number] Procedure Date No Time: 10/07/2024 Procedure: Upper GI endoscopy Indications: Heartburn Providers: Gualberto Wagner DO Referring MD: Barbie Fitzgerald MD Medicines: Monitored Anesthesia Care Complications: No immediate complications. Estimated blood loss: Minimal. Estimated Blood Loss: Estimated blood loss was minimal. Procedure: Pre-Anesthesia Assessment: - - Prior to the procedure, a History and Physicalwas performed, and patient medications and allergieswere reviewed. The patient is competent. The risks and benefits of the procedure and the sedation optionsand risks were discussed with the patient. Allquestions were answered and informed consent was obtained. Patient identification and proposed procedure were verified by the physician, the nurse, the anesthesiologist, the air conditioning unit tester and thetechnician in the pre-procedure area in the endoscopy suite. Mental Status Examination: alert and oriented.Airway Examination: normal oropharyngeal airway and neck mobility. Respiratory Examination: clear to auscultation. CV Examination: normal. Prophylactic Antibiotics: The patient does not requireprophylactic antibiotics. Prior Anticoagulants: The patient has taken no anticoagulant or antiplatelet agents. ASA Grade Assessment: II - A patient with mild systemic disease. After reviewing the risks and benefits,the patient was deemed in satisfactory condition to undergo the procedure. The anesthesia plan was touse monitored anesthesia care (MAC). Immediately priorto administration of medications, the patient was re-assessed for adequacy to receive sedatives. The heart rate, respiratory rate, oxygen saturations, blood pressure, adequacy of pulmonary ventilation,and response to care were monitored throughout the procedure. The physical status of the patient was re-assessed after the procedure. After obtaining informed consent, the endoscope was passed under direct vision. Throughout theprocedure, the patient's blood pressure, pulse, and oxygen saturations were monitored continuously. TheEndoscope was introduced through the mouth, and advanced tothe third part of duodenum. The upper GI endoscopy was accomplished without difficulty. The patienttolerated the procedure well. Findings: The esophagus was normal. The stomach was normal. Biopsies were taken with a cold forceps for histology. Estimated blood losswas minimal. The examined duodenum was normal. Biopsies weretaken with a cold forceps for histology. Estimated blood loss was minimal. Procedure Code(s): --- Professional --- 34111, Esophagogastroduodenoscopy, flexible, transoral; with biopsy, single or multiple Diagnosis Code(s): --- Professional --- R12, Heartburn CPT copyright 2020 [employer]. All rights reserved. The codes documented in this report are preliminary and upon gauge operator reviewmay be revised to meet current compliance requirements. GUALBERTO Wagner DO 10/07/2024 11:15:05 AM This report has been signed electronically.Gualberto Wagner DO Number of Addenda: 0 Note Initiated On: 10/07/2024 10:40 AM Scope In: Scope Out: Endoscopy Department at [facility] - [address] [place] [phone] IMPRESSION: - Normal esophagus. - Normal stomach. Biopsied. - Normal examined duodenum. Biopsied. Recommendation: - Discharge patient to home. - Resume previous diet. - Continue present medications. - Await pathology results. - See colonoscopy results. us Gualberto Wagner DO GI~PROCEDURE ORDERABLES Final Re sult * Tissue exam (10/07/2024 11:13 AM EDT) Final Diagnosis A. Small Intestine, Duodenum, biopsies: - Duodenal mucosa with preserved villi and no specific pathologic changes. - Negative for increased intraepithelial lymphocytes. B. Stomach, random gastric biopsies: - Gastric antral mucosa with no specific pathologic changes. - Gastric oxyntic mucosa with mild parietal cell hyperplasia as seen in PPI therapy. - No Helicobacter pylori organisms are morphologically identified. C. Colon, random biopsies: - Colonic mucosa with no specific pathologic changes. D. Large Intestine, Sigmoid Colon, polyp: - Colonic mucosa with focal lamina propria hemorrhage. - Negative for dysplasia. 10/08/2024 10:47 AM EDT [facility] Gross Description A. Small Intestine, Duodenum, biopsies: Labeled biopsies duodenum . Received in formalin are three soft to friable, velvety, cedillo-pink, red-cedillo stippled tissue fragments ranging from 0.2 cm to 0.3 cm in greatest diameter, which are wrapped in paper and submitted in toto in one cassette, three pieces, multiple levels. B. Stomach, random gastric biopsies: Labeled random ga stomach . Received in formalin are three soft, cedillo-red tissue fragments ranging from 0.2 cm to 0.45 cm in greatest diameter, which are wrapped in paper and submitted in toto in one cassette, three pieces, multiple levels. C. Colon, random biopsies: Labeled random co colon . Received in formalin are five soft to friable, cedillo-pink to red tissue fragments ranging from 0.15 cm to 0.45 cm in greatest diameter, which are wrapped in paper and submitted in toto in one cassette, five pieces, multiple levels. D. Large Intestine, Sigmoid Colon, polyp: Labeled polyp in sig colon . Received in formalin is a soft, cedillo to red, 0.7 cm in greatest diameter flat to polypoid tissue with minimal attached fecal/food debris, which is inked blue at the base, bisected, wrapped in paper and submitted in entirety in one cassette, two + multiple pieces, multiple levels. TS 10/08/2024 10:47 AM EDT [facility] Disclaimer Unless otherwise specified, all tissue is 10% NB formalin fixed and paraffin embedded. 10/08/2024 10:47 AM EDT [facility] Tissue Duodenal structure / Unknown 10/07/2024 11:13 AM EDT 10/07/2024 11:55 AM EDT Tissue specimen (specimen) Stomach structure / Unknown 10/07/2024 11:13 AM EDT 10/07/2024 11:55 AM EDT Tissue specimen (specimen) Colon structure / Unknown 10/07/2024 11:21 AM EDT 10/07/2024 11:55 AM EDT Tissue specimen (specimen) Sigmoid colon structure / Unknown 10/07/2024 11:23 AM EDT 10/07/2024 11:55 AM EDT Gualberto Wagner DO LAB PATHOLOGY ORDERABLES Final R esult [facility] [address] [place] [address], * MG Mammo Digital Screening w Mandeep bilat (02/24/2024 9:35 AM EST) Anatomical Region Laterality Modality Breast Bilateral Mammography 04/08/2024 3:37 PM EST Impressions 04/08/2024 3:38 PM EST No evidence of breast malignancy. BI-RADS CATEGORY: 2 - BENIGN RECOMMENDATION: Screening bilateral mammogram is recommended in 1 year. Mammo Location: [facility], [address] [place] [address], [address], . -------- FINAL REPORT -------- Dictated By: Nemo Maxwell Dictated Date: 04/08/2024 15:37 ET Assigned Physician: Nemo Maxwell Reviewed and Electronically Signed By: Nemo Maxwell Signed Date: 04/08/2024 15:38 ET Workstation ID: [id number] Transcribed By: Self Edit Transcribed Date: 04/08/2024 15:37 ET Narrative 04/08/2024 3:38 PM EST CLINICAL: 43 years old, Female, routine annual exam. COMPARISON: 01/03/2023, 12/24/2022 and 03/25/2014 TECHNIQUE: Bilateral MLO and CC views were obtained digitally with 3-D mammogram (digital breast tomosynthesis). Computer-aided detection was utilized in evaluation of this exam (CAD). FINDINGS: There is no evidence of suspicious mass or architectural distortion. No worrisome calcifications are evident. There has been no significant change from prior exam(s). Bilateral oval circumscribed masses consistent with cysts. [...] year. Mammo Location: [facility], [address] [place] [address], [facility], . -------- FINAL REPORT -------- Dictated By: Nemo Maxwell Dictated Date: 04/08/2024 15:37 ET Assigned Physician: Nemo Maxwell Reviewed and Electronically Signed By: Nemo Maxwell Signed Date: 04/08/2024 15:38 ET Workstation ID: [id number] Transcribed By: Self Edit Transcribed Date: 04/08/2024 15:37 ET us Self Referral Sppl IMG BI PROCEDURES Final Resul t * (ABNORMAL) Lipid panel (06/30/2020) LDL/HDL Ratio 2 0 - 4 Triglycerides 151(A) 0 - 150 mg/dL Cholesterol 148 0 - 200 mg/dL HDL 65 >=40 mg/dL LDL Cholesterol 53 0 - 100 mg/dL Blood Venous blood specimen / Unknown Historical Provider LAB BLOOD ORDERABLES Sapna l Result * Cervical Cancer Screening: HPV (05/08/2020) Cervical Cancer Screening: HPV Negative abstracted Historical Provider HEALTH MAINTENANCE Final Result * HIV Screening (08/24/2013) HIV Screening abstracted [facility] Provider HEALTH MAINTENANCE Final Result from Last 3 Months or Most Recently Relevant to Health Maintenance Insurance [employer] [facility] Care Teams Power Systems Engineer Relationship Specialty Start Date End Date Barbie Fitzgerald MD [address] [place] [phone] PCP - General Internal Medicine 04/16/24
--- OUTSIDE RECORDS SUMMARY | 2024-12-10 12:33 | XMS_ITS | Encounter Summary ---
Author Organization [facility] Address [address] [facility] [address] [place] [address] Phone Care Team Providers Care Inventory And Pricing Associate Name Role Phone Jae Rodríguez MD Primary Care Provider [phone] Encounter Details Date Type Department Care Team (Latest Contact Info) Description 12/25/2019 Transcribe Orders Virtual Department [address] [place] [phone] Zion Massey MD [address] [place] [address] [email or web address] Muscle ache (Primary Dx) Social History Tobacco [...] (12/25/2019 3:21 PM EDT) Specimen Source [facility] Comment:Corrected on 12/24 A T 1538: 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 YES [facility] Other 12/25/2019 3:21 PM EDT 12/25/2019 3:37 PM EDT us Zion Massey MD BODY FLUIDS AND STOOLS ORDER ACOSTA Edited Result - Final [address] [address] documented in this encounter Visit Diagnoses Diagnosis Muscle ache- Primary Unspecified myalgia and myositis documented in this encounter Additional Health Concerns Infection Onset Date Last Indicated Resolved Time CoV-Risk 12/25/2019 12/25/2019 01/08/2020 1:23 AM EST documented as of this encounter Care Teams Inventory And Pricing Associate Relationship Specialty Start Date End Date Jae Rodríguez MD [address] [place] [address] PCP - General Internal Medicine 12/25/19 documented as of this encounter Additional Source Comments The information contained in this document represents components of the legal health record. It is not the complete legal health record.[facility]
--- OUTSIDE RECORDS SUMMARY | 2024-12-10 12:33 | XMS_ITS | Clinical Summary ---
Author Organization [facility] Address [address] [address] Phone Care Team Providers Care Metal Model Maker Name Role Phone Jae Rodríguez MD Primary Care Provider [phone] Social History Tobacco Use Types Packs/Day Years Used Date Smoking Tobacco: Never Assessed Education Answer Date Recorded Are you interested in more education? Not on joel e 07/01/2022 Are you concerned about learning? Not on file 07/01/2022 No 07/01/2022 No 07/01/2022 Digital Access Answer Date Recorded No 08/01/2022 No 08/01/2022 No 08/01/2022 Reliable internet access at home? Not on file 08/01/2022 Device with a working camera? Not on file Comments Unknown Sex and Gender Information Value Date Recorded Sex Assigned at Not on file Legal Sex Female 4:01 PM EDT Gender Identity Not on file Sexual Orientation Not on file Plan of Treatment Health Maintenance Due Date Last Done Comments DEPRESSION SCREENING 1993 SMOKING Hx and SMOKELESS TOBACCO SCREENING 1994 HEPATITIS C SCREENING 09/01/1999 HIV ONE-TIME SCREENING (18-65 YEARS) 09/01/1999 PAP SMEAR 2002 MAMMOGRAM 2021 INFLUENZA VACCINE (#1) 2024 12/24/2019, 2012 COVID-19 VACCINE ( season) 2024 05/14/2020, 04/29/2020, 04/23/2020, Additional history exists Adult Td,Tdap Booster 06/30/2030 06/30/2020, 010 HEPATITIS A VACCINES Aged Out No long er eligible based on patient's age to complete this topic HIB VACCINES Aged Out No longer eligi ble based on patient's age to complete this topic MENINGOCOCCAL VACCINES (ACWY) Aged Out No longer eligible based on patient's age to complete this topic MENINGOCOCCAL VACCINES (B) Aged Out N o longer eligible based on patient's age to complete this topic PNEUMOCOCCAL VACCINES (0-49 years) Aged Out No longer eligible based on patient's age to complete this topic Medical Devices Not on file [place] [address] [place] [address] [place] [address] [place] [address] [place] [address] [place] [address] [place] [id number] [place] [address] [place] [address] [place] [address] [place] [address] [place] [address] HMO POS Care Teams Metal Model Maker Relationship Specialty Start Date End Date Jae Rodríguez MD [address] [place] [address] PCP - General Internal Medicine 12/25/19 Additional Source Comments The information contained in this document represents components of the legal health record. It is not the complete legal health record.[facility]
== END 2024-12-10 11:09 | disposition home or self-care (01) ==
LOC: HO.HWS 10:26
PROVIDERS: PCP Internal Medicine; Visit Provider Obstetrics & Gynecology
DX: Z01.419 Encounter for gynecological examination (general) (routine) without abnormal findings (principal); N63.22 Unspecified lump in the left breast, upper inner quadrant; Z30.431 Encounter for routine checking of intrauterine contraceptive device; Z32.02 Encounter for pregnancy test, result negative
CPT/HCPCS: 99203; 99386; 99459

== ENCOUNTER → 2024-12-10 10:26 | Outpatient (BNVA) | payer OTHER, SELFPAY | PROVIDERS: PCP Internal Medicine; Visit Provider Obstetrics & Gynecology | DX: Z01.419 Encounter for gynecological examination (general) (routine) without abnormal findings (principal); Z30.431 Encounter for routine checking of intrauterine contraceptive device; N63.22 Unspecified lump in the left breast, upper inner quadrant; Z32.02 Encounter for pregnancy test, result negative | CPT/HCPCS: 81025 ==

== ENCOUNTER 2024-12-10 14:02 | Outpatient (REF) | payer OTHER, SELFPAY | END 2024-12-10 14:03 | disposition home or self-care (01) | LOC: HO.LNP 14:02 | PROVIDERS: Visit Provider Obstetrics & Gynecology | DX: Z00.00 Encounter for general adult medical examination without abnormal findings (principal); Z11.51 Encounter for screening for human papillomavirus (HPV) | CPT/HCPCS: 87626; 88175 ==

== ENCOUNTER 2024-12-19 08:52 | Outpatient (REF) | payer OTHER, SELFPAY ==
--- OUTSIDE RECORDS SUMMARY | 2023-12-25 08:59 | XMS_ITS | Encounter Summary ---
Author Organization [facility] Address [address] [place] [address] Care Team Providers Care Environmental Service Aide Name Role Phone Barbie Fitzgerald MD Primary Care Provider [phone] Encounter Details Date Type Department Care Team (Latest Contact Info) Description 12/25/2023 8:59 AM EDT Hospital Encounter TH HISTORIC ENCOUNTERS EASTERN CONVERSION ONLY Devi Gr, CHILDCARE WORKER [address] [place] [address] Epigastric pain Social History Tobacco Use Types [...] care for your loved ones. For example, early childhood lead teacher or elderly care for an older adult? [...] 3:00 PM EST Office Visit Adult Medicine [address] [address] Barbie Fitzgerald MD [address] [place] [address] documented as of this encounter Procedures Procedure Name Priority Date/Time Associated Diagnosis Comments CR UGI W AIR ROUTINE Routine 12/25/2023 3:52 PM EDT Epigastric pain documented in this encounter Results * CR UGI W AIR ROUTINE (12/25/2023 3:52 PM EDT) Anatomical Region Laterality Modality Radiographic Sussy ging 12/25/2023 9:20 AM EDT Narrative 12/25/2023 3:52 PM EDT [facility] Diagnostic Imaging Department [address] [place] [address] Patient: ALLABECK /Age/Sex: 1980 - 43 - F Unit#: [id number] Location/Status: SPDIGEN/REG CLI Mnemonic/Ordering Site: [facility] Ordering Physician: DEVI GR APRN CR UGI W Air Routine - 12/25/23 - 6122 Report Status:Signed FINDINGS: Double contrast UGI performed. COMPARISON: None HISTORY: Patient is a 43-year-old female with history of refractory GERD. LAWN CARE TECHNICIAN radiographs: Timber Mill Worker AP radiograph of the abdomen obtained. Bowel [...] Dic Date/Time: 12/25/23 1206 Sign date/Time: 12/25/23 9872 Procedure Note Joel Barajas MD - 01/02/2024 [facility] Diagnostic Imaging Department [address] [place] [address] Patient: BECK REYES/Age/Sex: 1980 - 43 - F Unit#: [id number] Location/Status: SPDIGEN/REG CLI Mnemonic/Ordering Site: [facility] Ordering Physician: DEVI GR APRN CR ERVNI Siegel Air Routine - 12/25/23 - 0953 Report Status:Signed FINDINGS: Double contrast UGI performed. COMPARISON: None HISTORY: Patient is a 43-year-old female with history of refractoryGERD. LAWN CARE TECHNICIAN radiographs: Timber Mill Worker AP radiograph of the abdomen obtained. Bowelgas [...] Physician: JOEL BARAJAS Electronically Signed by: JOEL BARAAJS Dic Date/Time: 12/25/23 1206 Sign date/Time: 12/25/23 1552 Devi Gr CHILDCARE WORKER IMG XR PROCEDURES Final Result documented in this encounter Visit Diagnoses Diagnosis Epigastric pain Abdominal pain, epigastric documented in this encounter Additional Health Concerns Infection Onset Date Last Indicated Resolved Time C. difficile Rule-Out 09/18/2024 09/18/20242024 7:05 PM EDT Gastrointestinal Rule-Out 09/18/2024 09/18/2024 7:05 PM EDT documented as of this encounter Care Teams Environmental Service Aide Relationship Specialty Start Date End Date Barbie Fitzgerald MD PCP - General 02/15/22 04/15/24 documented as of this encounter
--- NOTE | ~2024-12-19 | MM_ITS ---
EXAMINATION: MM DIAGNOSTIC DIGITAL BREAST TOMOSYNTHESIS, BILATERAL Right limited ultrasound. CLINICAL INFORMATION: Right breast palpable lump upper central to slightly outer breast. COMPARISON: Mammography: Comparison is made with relevant prior exams. TECHNIQUE: Digital breast mammography with tomosynthesis is performed in both the craniocaudal and mediolateral oblique views along with computer-aided detection (CAD). FINDINGS: The breasts are heterogeneously dense, which may obscure small masses. Left: There are no significant masses, abnormal calcifications, or other abnormalities. Right: BB marker in the upper slightly outer to central breast with an underlying circumscribed oval mass at site of patient's palpable lump. There is a circumscribed oval mass in the upper inner breast best seen on CC view. No suspicious calcifications or other abnormal findings. Targeted color Doppler ultrasound in the right breast area of patient's palpable lump at 11:00 recent meters from nipple demonstrates a simple cyst measuring 22 x 20 x 19 mm which correlates with the palpable lump and circumscribed oval mass on mammography. 1:00 2 cm from the nipple there is a minimally corticated cyst with a thin avascular intervening septation measuring 38 x 22 x 9 mm which correlates with the circumscribed oval mass seen in the medial breast on CC view. Results are discussed with the patient at time of visit. MM/MM tomosynthesis diagnostic BI IMPRESSION: Simple and minimally complex cysts in the right breast 11:00 and 1:00. Benign. Patient prefers to have ultrasound guided cyst aspiration of both cysts. These procedures will be scheduled. ASSESSMENT: BI-RADS Category 2: Benign RECOMMENDATION: 1 year F/U Cyst aspiration for 2 right breast minimal corticated cysts at this time will be scheduled. This patient's information was entered into a reminder system with a target due date for their next mammogram. Electronically signed by: Patti Mckeon DO 12/19/2024 10:43 AM EDT
--- OUTSIDE RECORDS SUMMARY | 2024-12-19 09:44 | XMS_ITS | Clinical Summary ---
Author Organization [facility] Address [address] [address] Phone Care Team Providers Care Header Operator Name Role Phone Jae Rodríguez MD Primary Care Provider [phone] Social History Tobacco Use Types Packs/Day Years [...] topic Medical Devices Not on file [place] [address] [place] [address] [place] [address] [place] [address] [place] [address] [place] [address] [place] [id number] [place] [address] [place] [address] [place] [place] [address] [place] [address] [place] [address] [place] [address] HMO POS Care Teams Header Operator Relationship Specialty Start Date End Date Jae Rodríguez MD [address] [place] [address] PCP - General Internal Medicine 12/25/19 Additional Source Comments The information contained in this document represents components of the legal health record. It is not the complete legal health record.[facility]
--- OUTSIDE RECORDS SUMMARY | 2024-12-19 09:44 | XMS_ITS | Clinical Summary ---
Author Organization [facility] [address] [facility] Address [address] [place] [address] Phone Care Team Providers Care Audit Director Name Role Phone Barbie Fitzgerald MD Primary Care Provider Allergies Active Allergy Reactions Criticality Noted Date [...] Description 10/07/2024 11:06 AM EDT Anesthesia Event [facility]oscopy [address] [place] [phone] Abhi Briceno MD 10/07/2024 10:04 AM EDT - 10/07/2024 11:59 PM EDT Hospital Encounter [facility] Endoscopy [address] [place] [phone] Gualberto Wagner DO Epigastric abdominal pain; Diarrhea, unspecified type Discharge Disposition: Home or Self Care 09/23/2024 Telephone Gastroenterology [facility] [address] [facility] [address] [phone] Laxmi Gr NP 09/18/2024 11:00 AM EDT Office Visit Gastroenterology [facility] [address] [facility] [address] [phone] Laxmi Gr, PORSHA Epigastric abdominal pain (Primary Dx); Diarrhea, unspecified type; Gastroesophageal reflux disease without esophagitis 09/18/2024 Telephone Gastroenterology [facility] 175 [facility] [address] [phone] Laxmi Gr NP from Last 3 Months Immunizations Immunization Administration Dates Next Due Hepatitis B (Osgqfsb-N-Boshm , Recombivax HB-Adult) 19yo and older 05/29/2013,02/20/2013,01/23/2013 [...] your loved ones. For example, early childhood associate or elderly care for an older adult? [...] Adult Medicine [facility] [address] [place] [address] Barbie Fitzgerald MD [address] [place] [address] Health Maintenance Due Date Last Done Comments [...] Maintenance Results * COLONOSCOPY Anesthesia - MAC; [facility] ENDOSCOPY (10/07/2024 11:26 AM EDT) Anatomical Region [...] pathology results. Narrative 10/07/2024 11:26 AM EDT [facility] GI Patient Name: Beck Reyes Procedure Date: 10/07/2024 10:41 AM Date of : 1980 Age: 44 Gender: Female Note Status: Finalized Attending MD: Gualberto Wagner DO, [id number] Procedure Date No Time: 10/07/2024 Procedure: Colonoscopy [...] the physician, the nurse, the anesthesiologist, the buckle and button maker and the radiography technician in the pre-procedure area in the [...] the physician, the nurse, the anesthesiologist, the buckle and button maker and the radiography technician in the pre-procedure area in the [...] was minimal. Procedure Code(s): --- Professional --- 70675, Colonoscopy, flexible; with removal of tumor(s), polyp(s), or other lesion(s) by snare technique 65929, 59, Colonoscopy, flexible; with biopsy, single or multiple Diagnosis Code(s): --- Professional --- K64.9, Unspecified hemorrhoids D12.5, Benign neoplasm of sigmoid colon K52.9, Noninfective gastroenteritis and colitis, unspecified CPT copyright 2020 [employer]. All rights reserved. The codes documented in this report are preliminary and upon meteorological technician review may be revised to meet current compliance requirements. GUALBERTO Wagner DO 10/07/2024 11:26:43 AM This report has been signed electronically.Gualberto Wagner DO Number of Addenda: 0 Note Initiated On: 10/07/2024 10:41 AM Scope Withdrawal Time: 0 hours 6 minutes 21 seconds Scope In: 11:16:45 AM Scope Out: 11:25:02 AM Endoscopy Department at [facility] - [address] [place] [phone] Procedure Note Gualberto Wagner DO - 10/07/2024 [facility] GI Patient Name: Beck Reyes Procedure Date: 10/07/2024 10:41 AM Date of : 1980 Age: 44 Gender: Female Note Status: Finalized Attending MD: Gualberto Wagner DO, [id number] Procedure Date No Time: 10/07/2024 Procedure: Colonoscopy [...] the physician, the nurse, the anesthesiologist, the buckle and button maker and thetechnician in the pre-procedure area in [...] the physician, the nurse, the anesthesiologist, the buckle and button maker and thetechnician in the pre-procedure area in [...] was minimal. Procedure Code(s): --- Professional --- 39113, Colonoscopy, flexible; with removal of tumor(s), polyp(s), or other lesion(s) by snare technique 72874, 59, Colonoscopy, flexible; with biopsy,single or multiple Diagnosis Code(s): --- Professional --- K64.9, Unspecified hemorrhoids D12.5, Benign neoplasm of sigmoid colon K52.9, Noninfective gastroenteritis and colitis, unspecified CPT copyright 2020 [employer]. All rights reserved. The codes documented in this report are preliminary and upon meteorological technician reviewmay be revised to meet current compliance requirements. GUALBERTO Wagner DO 10/07/2024 11:26:43 AM This report has been signed electronically.Gualberto Wagner DO Number of Addenda: 0 Note Initiated On: 10/07/2024 10:41 AM Scope Withdrawal Time: 0 hours 6 minutes 21 seconds Scope In: 11:16:45 AM Scope Out: 11:25:02 AM Endoscopy Department at [facility] - [address] [place] [phone] IMPRESSION: - Hemorrhoids found on perianal exam. [...] Re sult * EGD Anesthesia - MAC; [facility] ENDOSCOPY (10/07/2024 11:26 AM EDT) Anatomical Region Laterality Modality Endoscopy 10/07/2024 10:4 0 AM EDT Impressions 10/07/2024 11:15 AM EDT - Normal esophagus. - Normal stomach. Biopsied. - Normal examined duodenum. Biopsied. Recommendation: - Discharge patient to home. - Resume previous diet. - Continue present medications. - Await pathology results. - See colonoscopy results. Narrative 10/07/2024 11:[address] [facility] GI Patient Name: Beck Reyes Procedure Date: 10/07/2024 10:40 AM Date of : 1980 Age: 44 Gender: Female Note Status: Finalized Attending MD: Gualberto Wagner DO, [id number] Procedure Date No Time: 10/07/2024 Procedure: Upper [...] the physician, the nurse, the anesthesiologist, the buckle and button maker and the radiography technician in the pre-procedure area in the [...] was minimal. Procedure Code(s): --- Professional --- 07346, Esophagogastroduodenoscopy, flexible, transoral; with biopsy, single or multiple Diagnosis Code(s): --- Professional --- R12, Heartburn CPT copyright 2020 [employer]. All rights reserved. The codes documented in this report are preliminary and upon meteorological technician review may be revised to meet current compliance requirements. GUALBERTO Wagner DO 10/07/2024 11:15:05 AM This report has been signed electronically.Gualberto Wagner DO Number of Addenda: 0 Note Initiated On: 10/07/2024 10:40 AM Scope In: Scope Out: Endoscopy Department at [facility] - [address] [place] [phone] Procedure Note Gualberto Wagner DO - 10/07/2024 [facility] GI Patient Name: Beck Reyes Procedure Date: 10/07/2024 10:40 AM Date of : 1980 Age: 44 Gender: Female Note Status: Finalized Attending MD: Gualberto Wagner DO, [id number] Procedure Date No Time: 10/07/2024 Procedure: Upper [...] the physician, the nurse, the anesthesiologist, the buckle and button maker and thetechnician in the pre-procedure area in [...] was minimal. Procedure Code(s): --- Professional --- 11139, Esophagogastroduodenoscopy, flexible, transoral; with biopsy, single or multiple Diagnosis Code(s): --- Professional --- R12, Heartburn CPT copyright 2020 [employer]. All rights reserved. The codes documented in this report are preliminary and upon meteorological technician reviewmay be revised to meet current compliance requirements. GUALBERTO Wagner DO 10/07/2024 11:15:05 AM This report has been signed electronically.Gualberto Wagner DO Number of Addenda: 0 Note Initiated On: 10/07/2024 10:40 AM Scope In: Scope Out: Endoscopy Department at [facility] - [address] [place] [phone] IMPRESSION: - Normal esophagus. - Normal stomach. [...] Negative for dysplasia. 10/08/2024 10:[address] [facility] Gross Description A. Small Intestine, [...] multiple levels. TS 10/08/2024 10:[address] [facility] Disclaimer Unless otherwise specified, all tissue is 10% NB formalin fixed and paraffin embedded. 10/08/2024 10:[address] [facility] Tissue Duodenal structure / Unknown [...] DO LAB PATHOLOGY ORDERABLES Final R esult [facility] [address] [place] [address], * MG Mammo Digital Screening w Mandeep bilat (02/24/2024 9:35 AM EST) Anatomical Region Laterality Modality Breast Bilateral Mammography 04/08/2024 3:37 PM EST Impressions 04/08/2024 3:38 PM EST No evidence of breast malignancy. BI-RADS CATEGORY: 2 - BENIGN RECOMMENDATION: Screening bilateral mammogram is recommended in 1 year. Mammo Location: [facility], [address] [place] [address], [address], . -------- FINAL REPORT -------- Dictated By: Nemo Maxwell Dictated Date: 04/08/2024 15:37 ET Assigned Physician: Nemo Maxwell Reviewed and Electronically Signed By: Nemo Maxwell Signed Date: 04/08/2024 15:38 ET Workstation ID: [id number] Transcribed By: Self Edit Transcribed Date: 04/08/2024 [...] year. Mammo Location: [facility], [address] [place] [address], [facility], . -------- FINAL REPORT -------- Dictated By: Nemo Maxwell Dictated Date: 04/08/2024 15:37 ET Assigned Physician: Nemo Maxwell Reviewed and Electronically Signed By: Nemo Maxwell Signed Date: 04/08/2024 15:38 ET Workstation ID: [id number] Transcribed By: Self Edit Transcribed Date: 04/08/2024 [...] * HIV Screening (08/24/2013) HIV Screening abstracted [facility] Provider HEALTH MAINTENANCE Final Result from Last 3 Months or Most Recently Relevant to Health Maintenance Insurance [place] [employer] [facility] Care Teams Audit Director Relationship Specialty Start Date End Date Barbie Fitzgerald MD [address] [place] [phone] PCP - General Internal Medicine 04/16/24
--- OUTSIDE RECORDS SUMMARY | 2024-12-19 09:44 | XMS_ITS | Encounter Summary ---
Author Organization [facility] Address [address] [facility] [address] [place] [address] Phone Care Team Providers Care Program Project Analyst Name Role Phone Jae Rodríguez MD Primary Care Provider [phone] Encounter Details Date Type Department Care Team (Latest Contact Info) Description 12/25/2019 Transcribe Orders Virtual Department [address] [place] [address] Zion Massey MD [address] [place] [address] [email or web address] Muscle ache (Primary Dx) Social History Tobacco [...] (12/25/2019 3:21 PM EDT) Specimen Source [facility] Comment:Corrected on 12/24 A T 1538: previously 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 YES [facility] Other 12/25/2019 3:21 PM EDT 12/25/2019 3:37 PM EDT us Zion Massey MD BODY FLUIDS AND STOOLS ORDER [place]STA Edited Result - Final [address] [address] documented in this encounter Visit Diagnoses Diagnosis Muscle ache- Primary Unspecified myalgia and myositis documented in this encounter Additional Health Concerns Infection Onset Date Last Indicated Resolved Time CoV-Risk 12/25/2019 12/25/2019 01/08/2020 1:23 AM EST documented as of this encounter Care Teams Program Project Analyst Relationship Specialty Start Date End Date Jae Rodríguez MD [address] [place] [address] PCP - General Internal Medicine 12/25/19 documented as of this encounter Additional Source Comments The information contained in this document represents components of the legal health record. It is not the complete legal health record.[facility]
== END 2024-12-19 08:53 | disposition home or self-care (01) ==
LOC: HO.MAMMO 08:52
PROVIDERS: Visit Provider Obstetrics & Gynecology
DX: N63.22 Unspecified lump in the left breast, upper inner quadrant (principal)
CPT/HCPCS: 76642; 77062; 77066

== ENCOUNTER → 2024-12-19 09:00 | Outpatient (BNV) | payer OTHER, SELFPAY | PROVIDERS: Visit Provider Internal Medicine | DX: N63.12 Unspecified lump in the right breast, upper inner quadrant (principal) | CPT/HCPCS: 76642; 77062; 77066 ==

== ENCOUNTER 2024-12-20 13:35 | Outpatient (AMB) | payer OTHER, SELFPAY ==
--- OUTSIDE RECORDS SUMMARY | 2023-12-25 08:59 | XMS_ITS | Encounter Summary ---
Author Organization [facility] Address [address] [place] [address] Care Team Providers Care Forest Fire Prevention Specialist Name Role Phone Barbie Fitzgerald MD Primary Care Provider [phone] Encounter Details Date Type Department Care Team (Latest Contact Info) Description 12/25/2023 8:59 AM EDT Hospital Encounter TH HISTORIC ENCOUNTERS EASTERN CONVERSION ONLY Devi Gr, SOFTWARE ENGINEERING ANALYST [address] [place] [address] Epigastric pain Social History Tobacco Use Types Packs/Day Years Used Date Smoking Tobacco: Former Cigarettes Q uit: 10/14/2020 Smokeless Tobacco: Never Alcohol Use Standard Drinks/Week Comments Yes 0 (1 standard drink = 0.6 oz pur e alcohol) SOCIALLY Housing Instability Answer Date Recorde d Are you worried that in the next 2 months you may not have stable housing? No 04/17/2024 Food Access & Nutrition Answer Date Rec orded Do you have access to a vari ety of food including fruits and vegetables? No 04/17/2024 Access to Healthcare Answer Date Record ed Within the last 3 months, ho w many times did you visit the emergency department for your medical care? 0 04/17/2024 Health Literacy Answer Date Recorded How often do you need to hav e someone help you when you read instructions, pamphlets, or other written material from your doctor or pharmacy? Never 04/17/2024 Caregiver: How often do you need to have someone help you when you read instructions, pamphlets, or other written material from your doctor or pharmacy? Not on file 04/17/2024 Financial Risk Answer Date Recorded How hard is it for you to pa y for the very basics like food, housing, medical care, and air conditioning / heating? Not very hard 04/17/2024 Transportation Answer Date Recorded Has the lack of transportati on kept you from meetings, work, or from getting things needed for daily living? No Has the lack of transportati on kept you from medical appointments or from getting medications? No 04/17/2024 Social Isolation Answer Date Recorded How often do you feel lonely or isolated from th ose around you? Never 04/17/2024 Food Risk Answer Date Recorded Within the past 12 months we worried whether our food would run out before we got money to buy more. Never true 04/17/2024 Within the past 12 months th e food we bought just didn't last and we didn't have money to get more. Never true 04/17/2024 Dependent Care Answer Date Recorded Do you need help finding or paying for care for your loved ones. For example, child day care center worker or elderly care for an older adult? No 04/17/2024 Education Answer Date Recorded Do you think completing more education or training, like finishing a GED, going to college, or learning a trade, would be helpful for you? No 04/17/2024 Employment and Income Answer Date Recor ded During the last four weeks, have you been actively looking for work? No 04/17/2024 Living Situation Answer Date Recorded What is your living situation? Unrecognized valu e 04/17/2024 Interpersonal Safety Answer Date Record ed Physical Abuse Unrecognized value 10/07/2024 Verbal Abuse Unrecognized value 10/07/2024 Comments No Sex and Gender Information Value Date Recorded Sex Assigned at Female 02/14/2024 6:35 PM EST Legal Sex Female 10:41 AM EST Gender Identity Female 02/14/2024 6:35 PM EST Sexual Orientation Straight 02/14/2024 6: 35 PM EST documented as of this encounter Plan of Treatment Upcoming Encounters Date Type Department Care Team (Late st Contact Info) Description 04/25/2025 3:00 PM EST Office Visit Adult Medicine [address] [address] Barbie Fitzgerald MD [address] [place] [address] documented as of this encounter Procedures Procedure Name Priority Date/Time Associated Diagnosis Comments CR UGI W AIR ROUTINE Routine 12/25/2023 3:52 PM EDT Epigastric pain documented in this encounter Results * CR UGI W AIR ROUTINE (12/25/2023 3:52 PM EDT) Anatomical Region Laterality Modality Radiographic Sussy ging 12/25/2023 9:20 AM EDT Narrative 12/25/2023 3:52 PM EDT [facility] Diagnostic Imaging Department [address] [place] [address] Patient: ALLABECK /Age/Sex: 1980 - 43 - F Unit#: [id number] Location/Status: SPDIGEN/REG CLI Mnemonic/Ordering Site: [facility] Ordering Physician: DEVI GR APRN CR UGI W Air Routine - 12/25/23 - 4155 Report Status:Signed FINDINGS: Double contrast UGI performed. COMPARISON: None HISTORY: Patient is a 43-year-old female with history of refractory GERD. CUSTOMER PROJECT MANAGER radiographs: Hand Shaker AP radiograph of the abdomen obtained. Bowel gas pattern is nonobstructive. Visualized lung bases appear clear. Osseous structures are overall unremarkable. FINDINGS: Effervescent crystals were administered orally. Thick and thin barium was then administered orally under fluoroscopic control. Esophagus: Normal distensibility, motility and mucosal pattern. There is no evidence of obstruction. There is a very small, sliding, axial hiatal hernia. Stomach: Normal distensibility and motility. Prompt passage of contrast from the stomach into the duodenal bulb and sweep. No gastric mass or ulceration. There is thickening of gastric mucosal folds predominantly along the lesser curvature, indicating history of gastritis. Visualization of proximal small bowel is within normal limits. Gastroesophageal reflux: Unable to elicit DAP: 7.07 Gycm^2 Exam performed and dictated by: Mary Segal PA-C Supervising physician: Joel Barajas MD IMPRESSION: 1. Very small, sliding, axial hiatal hernia without visualized gastroesophageal reflux. 2. Thickening of gastric mucosal folds predominantly along the lesser curvature, indicating history of gastritis. Dictating Physician: JOEL BARAJAS Electronically Signed by: JOEL BARAJAS Dic Date/Time: 12/25/23 1206 Sign date/Time: 12/25/23 5132 Procedure Note Joel Barajas MD - 01/02/2024 [facility] Diagnostic Imaging Department [address] [place] [address] Patient: BECK REYES/Age/Sex: 1980 - 43 - F Unit#: [id number] Location/Status: SPDIGEN/REG CLI Mnemonic/Ordering Site: [facility] Ordering Physician: DEVI GR APRN CR ERVIN Siegel Air Routine - 12/25/23 - 0953 Report Status:Signed FINDINGS: Double contrast UGI performed. COMPARISON: None HISTORY: Patient is a 43-year-old female with history of refractoryGERD. CUSTOMER PROJECT MANAGER radiographs: Hand Shaker AP radiograph of the abdomen obtained. Bowelgas pattern is nonobstructive. Visualized lung bases appear clear. Osseous structures are overall unremarkable. FINDINGS: Effervescent crystals were administered orally. Thick and thinbarium was then administered orally under fluoroscopic control. Esophagus: Normal distensibility, motility and mucosal pattern. There isno evidence of obstruction. There is a very small, sliding, axial hiatalhernia. Stomach: Normal distensibility and motility. Prompt passage of contrastfrom the stomach into the duodenal bulb and sweep. No gastric mass orulceration. There is thickening of gastric mucosal folds predominantly along thelesser curvature, indicating history of gastritis. Visualization of proximalsmall bowel is within normal limits. Gastroesophageal reflux: Unable to elicit DAP: 7.07 Gycm^2 Exam performed and dictated by: Mary Segal PA-C Supervising physician: Joel Barajas MD IMPRESSION: 1. Very small, sliding, axial hiatal hernia without visualizedgastroesophageal reflux. 2. Thickening of gastric mucosal folds predominantly along the lesser curvature, indicating history of gastritis. Dictating Physician: JOEL BARAJAS Electronically Signed by: JOEL BARAJAS Dic Date/Time: 12/25/23 1206 Sign date/Time: 12/25/23 1552 Devi Gr SOFTWARE ENGINEERING ANALYST IMG XR PROCEDURES Final Result documented in this encounter Visit Diagnoses Diagnosis Epigastric pain Abdominal pain, epigastric documented in this encounter Additional Health Concerns Infection Onset Date Last Indicated Resolved Time C. difficile Rule-Out 09/18/2024 09/18/20242024 7:05 PM EDT Gastrointestinal Rule-Out 09/18/2024 09/18/2024 7:05 PM EDT documented as of this encounter Care Teams Forest Fire Prevention Specialist Relationship Specialty Start Date End Date Barbie Fitzgerald MD PCP - General 02/15/22 04/15/24 documented as of this encounter
--- NOTE | 2024-12-20 13:43 | A.OFFVIS_ITS ---
Vital Signs 3 12/20/24 13:52 Height 5 ft 2 in Weight 116 lb BMI 21.2 BP 134/74 Blood Pressure Location Rt brachial Position Sitting Pulse 76 Intake Visit Reasons: cyst right breast (scheduled for asp next week) Intake Note: Pt reports to the office for consult prior to US cyst aspiration. US this week. Veterinary Livestock Inspector Required: No Allergies erythromycin base Allergy (Intermediate, Verified 12/10/24 10:39) rash bactrim Allergy (Intermediate, Uncoded 12/10/24 10:39) body rash Medication List - Last Reconciled 12/20/24 by Aj Calix MD famotidine 40 mg PO BEDTIME levonorgestrel (Mirena) intrauterine pantoprazole 40 mg PO DAILY Is last menstrual period known: Yes (2015 - IUD in place) Last menstrual period: 03/06/14 Patient : No Referred by: Trini WILLINGHAM Comments Details: 44-year-old female patient presenting for evaluation of a right breast mass noted on self-examination. She 1st noted the lump 1 year ago and has not noticed significant change in size. She denies any pain, redness or discharge. She does have a history of breast cysts including cyst in the right breast at this current location. She underwent diagnostic mammogram and ultrasound on 12/19/2024 this revealed a simple and minimally complex cyst in the right breast at the 11:00 and 1 o'clock position both felt to be benign. No other suspicious findings were identified (BI-RADS 2). She is scheduled for an [facility]. Her menarche was at age 12, she is . She has a Mirena IUD in place. REPLACED BY [facility] Medical History Cystic breast Family History (Updated 12/20/24 @ 14:03 by Stevie Beltrán RN) Maternal Grandfather Colon cancer Social History Household Members: Significant Other and Children Housing: House Comment: once a month Patient Tobacco Use Status: Former Tobacco user Current occupational status: employed Current occupation: [employer] Female Reproductive History Menstrual Age of Menarche: 12 Date of last menstrual period: 03/06/14 Total pregnancies: 1 Full term: 1 Review of Systems Const All systems reviewed & are unremarkable except as noted in HPI and below Physical Exam Vital Signs: Last Vital Signs Pulse 76 12/20/24 13:52 BP 134/74 12/20/24 13:52 BMI result Body Mass Index 21.2 Const General: no acute distress Nutritional Appearance: well nourished Orientation/consciousness: patient oriented x3 Limitations: no limitations HEENT Head: Yes normocephalic and Yes atraumatic Chest Other: Exam limited to right breast: Palpable mass noted in the 11 o'clock position, 4 cm from the nipple with smooth margins, mobile within the breast tissue approximately 2 cm in diameter most consistent with a simple cyst. A 2nd lesion in the 12-1 o'clock position also was mobile within the breast tissue and consistent with the 2nd breast cyst noted on ultrasound. No other palpable densities are noted. No enlarged lymph nodes, no skin changes, no nipple discharge, no nipple retraction. Chest/axillae images: 2 1. 2. Resp Effort & Inspection: normal respiratory effort Skin Other: Warm, dry, no rash Neuro General: patient oriented x3 Extrem Other: No edema Assessment & Plan Assessment & Plan (1) Breast lump on left side at 11 o'clock position: Comment: 4 cm in size, 4 cm from the nipple Code(s): N63.22 - Unspecified lump in the left breast, upper inner quadrant Category: Medical Plan 44-year-old female with a history of breast cysts presenting with a new breast cyst located in the 11 o'clock position. This is easily palpable exam confirms what appears to be 2 simple cysts in the upper portion of the right breast. No other suspicious findings were identified in the right breast. She is scheduled for an ultrasound-guided aspiration next week at the [facility]. Her follow- up will be based on procedure findings. She expressed understanding and agrees with the plan. Orders: Orders 2 US breast cyst asp RT Today N60.01 - Solitary cyst of right breast US breast cyst asp ea add Today N60.01 - Solitary cyst of right breast Coding Level of Care Code New Pt Level 4 (78503) Diagnoses Breast lump on left side at 11 o'clock position N63.22
[2024-12-20 13:52] VITALS: BP 134/74; PULSE 76; BMI 21.2
--- OUTSIDE RECORDS SUMMARY | 2024-12-20 16:08 | XMS_ITS | Clinical Summary ---
Author Organization [facility] [address] [facility] Address [address] [place] [address] Phone Care Team Providers Care Biometric Fingerprinting Technician Name Role Phone Barbie Fitzgerald MD Primary Care Provider [phone] Allergies Active Allergy Reactions Criticality Noted Date [...] Description 10/07/2024 11:06 AM EDT Anesthesia Event [facility] [address] [place] [address] Abhi Briceno MD 10/07/2024 10:04 AM EDT - 10/07/2024 11:59 PM EDT Hospital Encounter [facility] [address] [place] [address] Gualberto Wagner DO Epigastric abdominal pain; Diarrhea, unspecified type Discharge Disposition: Home or Self Care 09/23/2024 Telephone Gastroenterology - [place] [address] [facility] [address] [facility] [address] [place] [address] Laxmi Gr NP from Last 3 Months Immunizations Immunization Administration Dates Next Due Hepatitis B (Zhqgscz-U-Rfwqr , Recombivax HB-Adult) 19yo and older 05/29/2013,02/20/2013,01/23/2013 [...] Comments Anxiety DX:Anxiety GERD (gastroesophageal reflux disease) 5 H/O gastritis Hernia, internal HIATAL Family History [...] care for your loved ones. For example, maternal child nurse or elderly care for an older adult? [...] Upcoming Encounters Date Type Department Care Team ([facility] st Contact Info) Description 04/25/2025 3:00 PM EST Office Visit Adult Medicine [address], [place] [phone] Barbie Fitzgerald MD [address], [place] Health Maintenance Due Date Last Done Comments [...] for breast cancer LIPID PANEL Routine 06/30/2020 HM HPV Routine 05/08/2020 HIV SCREENING Routine 08/24/2013 from Last 3 Months or Most Recently Relevant to Health Maintenance Results * COLONOSCOPY Anesthesia - MAC; SP ENDOSCOPY (10/07/2024 11:26 AM EDT) Anatomical Region [...] pathology results. Narrative 10/07/2024 11:26 AM EDT [facility] GI Patient Name: Beck Reyes Procedure Date: 10/07/2024 10:41 AM Date of : 1980 Age: 44 Gender: Female Note Status: Finalized Attending MD: Gualberto Wagner DO, [id number] Procedure Date No Time: 10/07/2024 Procedure: Colonoscopy [...] the physician, the nurse, the anesthesiologist, the watch repair person and the template reproduction technician in the pre-procedure area in the [...] the physician, the nurse, the anesthesiologist, the watch repair person and the template reproduction technician in the pre-procedure area in the [...] was minimal. Procedure Code(s): --- Professional --- 39193, Colonoscopy, flexible; with removal of tumor(s), polyp(s), or other lesion(s) by snare technique 48529, 59, Colonoscopy, flexible; with biopsy, single or multiple Diagnosis Code(s): --- Professional --- K64.9, Unspecified hemorrhoids D12.5, Benign neoplasm of sigmoid colon K52.9, Noninfective gastroenteritis and colitis, unspecified CPT copyright 2020 [employer]. All rights reserved. The codes documented in this report are preliminary and upon social professionals review may be revised to meet current compliance requirements. GUALBERTO Wagner DO 10/07/2024 11:26:43 AM This report has been signed electronically.Gualberto Wagner DO Number of Addenda: 0 Note Initiated On: 10/07/2024 10:41 AM Scope Withdrawal Time: 0 hours 6 minutes 21 seconds Scope In: 11:16:45 AM Scope Out: 11:25:02 AM Endoscopy Department at [facility] - [address] [place] [phone] Procedure Note Gualberto Wagner DO - 10/07/2024 [facility] GI Patient Name: Beck Reyes Procedure Date: 10/07/2024 10:41 AM Date of : 1980 Age: 44 Gender: Female Note Status: Finalized Attending MD: Gualberto Wagner DO, [id number] Procedure Date No Time: 10/07/2024 Procedure: Colonoscopy [...] the physician, the nurse, the anesthesiologist, the watch repair person and thetechnician in the pre-procedure area in [...] the physician, the nurse, the anesthesiologist, the watch repair person and thetechnician in the pre-procedure area in [...] was minimal. Procedure Code(s): --- Professional --- 93241, Colonoscopy, flexible; with removal of tumor(s), polyp(s), or other lesion(s) by snare technique 87372, 59, Colonoscopy, flexible; with biopsy,single or multiple Diagnosis Code(s): --- Professional --- K64.9, Unspecified hemorrhoids D12.5, Benign neoplasm of sigmoid colon K52.9, Noninfective gastroenteritis and colitis, unspecified CPT copyright 2020 [employer]. All rights reserved. The codes documented in this report are preliminary and upon social professionals reviewmay be revised to meet current compliance requirements. GUALBERTO Wagner DO 10/07/2024 11:26:43 AM This report has been signed electronically.Gualberto Wagner DO Number of Addenda: 0 Note Initiated On: 10/07/2024 10:41 AM Scope Withdrawal Time: 0 hours 6 minutes 21 seconds Scope In: 11:16:45 AM Scope Out: 11:25:02 AM Endoscopy Department at [facility] - [address] [place] [phone] IMPRESSION: - Hemorrhoids found on perianal exam. [...] Re sult * EGD Anesthesia - MAC; [facility] ENDOSCOPY (10/07/2024 11:26 AM EDT) Anatomical Region Laterality Modality Endoscopy 10/07/2024 10:4 0 AM EDT Impressions 10/07/2024 11:15 AM EDT - Normal esophagus. - Normal stomach. Biopsied. - Normal examined duodenum. Biopsied. Recommendation: - Discharge patient to home. - Resume previous diet. - Continue present medications. - Await pathology results. - See colonoscopy results. Narrative 10/07/2024 11:15 AM EDT [facility] Patient Name: Beck Reyes Procedure Date: 10/07/2024 10:40 AM Date of : 1980 Age: 44 Gender: Female Note Status: Finalized Attending MD: Gualberto Wagner DO, [id number] Procedure Date No Time: 10/07/2024 Procedure: Upper [...] the physician, the nurse, the anesthesiologist, the watch repair person and the template reproduction technician in the pre-procedure area in the [...] was minimal. Procedure Code(s): --- Professional --- 78569, Esophagogastroduodenoscopy, flexible, transoral; with biopsy, single or multiple Diagnosis Code(s): --- Professional --- R12, Heartburn CPT copyright 2020 [employer]. All rights reserved. The codes documented in this report are preliminary and upon social professionals review may be revised to meet current compliance requirements. GUALBERTO Wagner DO 10/07/2024 11:15:05 AM This report has been signed electronically.Gualberto Wagner DO Number of Addenda: 0 Note Initiated On: 10/07/2024 10:40 AM Scope In: Scope Out: Endoscopy Department at [facility] - [address] [place] [phone] Procedure Note Gualberto Wagner DO - 10/07/2024 [facility] Patient Name: Beck Reyes Procedure Date: 10/07/2024 10:40 AM Date of : 1980 Age: 44 Gender: Female Note Status: Finalized Attending MD: Gualberto Wagner DO, [id number] Procedure Date No Time: 10/07/2024 Procedure: Upper [...] the physician, the nurse, the anesthesiologist, the watch repair person and thetechnician in the pre-procedure area in [...] was minimal. Procedure Code(s): --- Professional --- 15317, Esophagogastroduodenoscopy, flexible, transoral; with biopsy, single or multiple Diagnosis Code(s): --- Professional --- R12, Heartburn CPT copyright 2020 [employer]. All rights reserved. The codes documented in this report are preliminary and upon social professionals reviewmay be revised to meet current compliance requirements. GUALBERTO Wagner DO 10/07/2024 11:15:05 AM This report has been signed electronically.Gualberto Wagner DO Number of Addenda: 0 Note Initiated On: 10/07/2024 10:40 AM Scope In: Scope Out: Endoscopy Department at [facility] - [address] [place] [phone] IMPRESSION: - Normal esophagus. - Normal stomach. Biopsied. - Normal examined duodenum. Biopsied. Recommendation: - Discharge patient to home. - Resume previous diet. - Continue present medications. - Await pathology results. - See colonoscopy results. Gualberto Wagner DO GI~PROCEDURE ORDERABLES Final [...] - Negative for dysplasia. 10/08/2024 10:47 AM [facility] Gross Description A. Small Intestine, Duodenum, [...] pieces, multiple levels. TS 10/08/2024 10:47 AM [facility] Disclaimer Unless otherwise specified, all tissue is 10% NB formalin fixed and paraffin embedded. 10/08/2024 10:47 AM [facility] Tissue Duodenal structure / Unknown 10/07/2024 11:13 AM EDT 10/07/2024 11:55 AM EDT Tissue specimen (specimen) Stomach structure / Unknown 10/07/2024 11:13 AM EDT 10/07/2024 11:55 AM EDT Tissue specimen (specimen) Colon structure / Unknown 10/07/2024 11:21 AM EDT 10/07/2024 11:55 AM EDT Tissue specimen (specimen) Sigmoid colon structure / Unknown 10/07/2024 11:23 AM EDT 10/07/2024 11:55 AM EDT Gualberto Wagner LAB PATHOLOGY ORDERABLES Final R esult [facility] LAB [address] [place] [address], [place] [phone] * MG Mammo Digital Screening w Mandeep bilat (02/24/2024 9:35 AM EST) Anatomical Region Laterality Modality Breast Bilateral Mammography 04/08/2024 3:37 PM EST Impressions 04/08/2024 3:38 PM EST No evidence of breast malignancy. BI-RADS CATEGORY: 2 - BENIGN RECOMMENDATION: Screening bilateral mammogram is recommended in 1 year. Mammo Location: [facility], [address] [place] [address], [phone], . -------- FINAL REPORT -------- Dictated By: Nemo Maxwell Dictated Date: 04/08/2024 15:37 ET Assigned Physician: Nemo Maxwell Reviewed and Electronically Signed By: Nemo Maxwell Signed Date: 04/08/2024 15:38 ET Workstation ID: [id number] Transcribed By: Self Edit Transcribed Date: 04/08/2024 [...] year. Mammo Location: [facility], [address] [place] [address], [phone], . -------- FINAL REPORT -------- Dictated By: Nemo Maxwell Dictated Date: 04/08/2024 15:37 ET Assigned Physician: Nemo Maxwell Reviewed and Electronically Signed By: Nemo Maxwell Signed Date: 04/08/2024 15:38 ET Workstation ID: [id number] Transcribed By: Self Edit Transcribed Date: 04/08/2024 15:37 ET Self Referral [facility] IMG BI PROCEDURES Final Resul t * (ABNORMAL) Lipid panel (06/30/2020) Pathologist [facility] LDL/HDL Ratio 2 0 - 4 Triglycerides 151(A) 0 - 150 mg/dL Cholesterol 148 0 - 200 mg/dL HDL 65 >=40 mg/dL LDL Cholesterol 53 0 - 100 mg/dL Blood Venous blood specimen / Unknown Historical Provider LAB BLOOD ORDERABLES Sapna l Result * Cervical Cancer Screening: HPV (05/08/2020) Pathologist [facility] Cervical Cancer Screening: HPV Negative abstracted Historical Provider HEALTH MAINTENANCE Final Result * HIV Screening (08/24/2013) HIV Screening abstracted Historical Provider HEALTH MAINTENANCE Final Result from Last 3 Months or Most Recently Relevant to Health Maintenance Insurance [employer] [facility] Care Teams Biometric Fingerprinting Technician Relationship Specialty Start Date End Date Barbie Fitzgerald MD [address] [place] [phone] PCP - General Internal Medicine 04/16/24
--- OUTSIDE RECORDS SUMMARY | 2024-12-20 16:08 | XMS_ITS | Clinical Summary ---
Author Organization [facility] Address [address] [address] Phone Care Team Providers Care Information Systems Security Manager Name Role Phone Jae Rodríguez MD Primary Care Provider [phone] Social History Tobacco Use Types Packs/Day Years [...] topic Medical Devices Not on file [place] [address] [place] [address] [place] [address] [place] [address] [place] [address] [place] [id number] [place] [address] [place] [address] [address] [place] [place] [address] HMO POS Care Teams Information Systems Security Manager Relationship Specialty Start Date End Date Jae Rodríguez MD [address] [place] [address] PCP - General Internal Medicine 12/25/19 Additional Source Comments The information contained in this document represents components of the legal health record. It is not the complete legal health record.[facility]
--- OUTSIDE RECORDS SUMMARY | 2024-12-20 16:08 | XMS_ITS | Encounter Summary ---
Author Organization [facility] Address [address] [facility] [address] [place] [address] Phone Care Team Providers Care Lead Machinist Name Role Phone Jae Rodríguez MD Primary Care Provider [phone] Encounter Details Date Type Department Care Team (Latest Contact Info) Description 12/25/2019 Transcribe Orders Virtual Department [address] [place] [phone] Zion Massey MD [address] [place] [phone] [email or web address] Muscle ache (Primary Dx) Social History Tobacco [...] (12/25/2019 3:21 PM EDT) Specimen Source [facility] Comment:Corrected on 12/24 A T 1538: previously reported as 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 YES [facility] Other 12/25/2019 3:21 PM EDT 12/25/2019 3:37 PM EDT us Zion Massey MD BODY FLUIDS AND STOOLS ORDER [facility] Edited Result - Final [address] [address] documented in this encounter Visit Diagnoses Diagnosis Muscle ache- Primary Unspecified myalgia and myositis documented in this encounter Additional Health Concerns Infection Onset Date Last Indicated Resolved Time CoV-Risk 12/25/2019 12/25/2019 01/08/2020 1:23 AM EST documented as of this encounter Care Teams Lead Machinist Relationship Specialty Start Date End Date Jae oRdríguez MD [address] [place] [address] PCP - General Internal Medicine 12/25/19 documented as of this encounter Additional Source Comments The information contained in this document represents components of the legal health record. It is not the complete legal health record.[facility]
== END 2024-12-20 15:00 ==
LOC: HO.HGS 13:35
PROVIDERS: PCP Internal Medicine; Visit Provider Surgery
DX: N63.22 Unspecified lump in the left breast, upper inner quadrant (principal)
CPT/HCPCS: 99204

== ENCOUNTER 2024-12-24 07:50 | Outpatient (REF) | payer OTHER, SELFPAY ==
--- NOTE | ~2024-12-24 | US_ITS ---
Examinations/procedures: 1. Right breast ultrasound guided cyst aspiration 2. Right breast ultrasound-guided cyst aspiration (additional site) CLINICAL INFORMATION: Patient is status post right breast mammogram/ultrasound workup on December 19, 2024, which describes right benign cysts at 11:00 at 3 cm from the nipple and at 1:00 at 2 cm from the nipple. Patient wanted both cysts aspirated. COMPARISON: Bilateral mammogram and right breast ultrasound on December 19, 2024 FINDINGS: The procedure was explained to the patient including benefits and alternatives. The risks, including but not limited to infection and bleeding, were reviewed and the patient agreed to undergo the procedure, signing the consent form. Her identity was confirmed with two unique patient identifiers. The patient's right breast was imaged with the [facility] ultrasound unit and images of the cyst at 11 o'clock at the distance of 3 cm from the nipple (that measures 2.2 x 2.1 x 1.9 cm) and cyst at 1 o'clock at the distance of 2 cm from the nipple were obtained. The breast was prepped for the procedure and area was anesthetized with a local anesthetic (5 cc of lidocaine 1% buffered with Sodium Bicarbonate 8.4% (9ml: 1ml). 1. Right ultrasound-guided cyst aspiration of the cyst at 1 o'clock position 2 cm from the nipple: Using an 18-gauge hypodermic needle, approximately 5 cc of dark brownish fluid was aspirated and discarded. The cyst was collapsed following aspiration. 2. Right ultrasound-guided cyst aspiration of the cyst at 11 o'clock position at 3 cm from the nipple: Using an 18-gauge hypodermic needle, approximately 6 cc of dark brownish fluid was aspirated and discarded. The cyst was collapsed following aspiration. The patient experienced no complications during the procedure. No postprocedure mammogram was obtained. Total estimated blood loss: Minimal US/US breast cyst asp ea add IMPRESSION: Right ultrasound-guided cyst aspiration of cysts at 11:00 and 1:00 positions completed. Aspirated fluid discarded. Electronically signed by: Hammad York MD 12/24/2024 09:30 AM EDT
--- NOTE | ~2024-12-24 | US_ITS ---
Examinations/procedures: 1. Right breast ultrasound guided cyst aspiration 2. Right breast ultrasound-guided cyst aspiration (additional site) CLINICAL INFORMATION: Patient is status post right breast mammogram/ultrasound workup on December 19, 2024, which describes right benign cysts at 11:00 at 3 cm from the nipple and at 1:00 at 2 cm from the nipple. Patient wanted both cysts aspirated. COMPARISON: Bilateral mammogram and right breast ultrasound on December 19, 2024 FINDINGS: The procedure was explained to the patient including benefits and alternatives. The risks, including but not limited to infection and bleeding, were reviewed and the patient agreed to undergo the procedure, signing the consent form. Her identity was confirmed with two unique patient identifiers. The patient's right breast was imaged with the [facility] ultrasound unit and images of the cyst at 11 o'clock at the distance of 3 cm from the nipple (that measures 2.2 x 2.1 x 1.9 cm) and cyst at 1 o'clock at the distance of 2 cm from the nipple were obtained. The breast was prepped for the procedure and area was anesthetized with a local anesthetic (5 cc of lidocaine 1% buffered with Sodium Bicarbonate 8.4% (9ml: 1ml). 1. Right ultrasound-guided cyst aspiration of the cyst at 1 o'clock position 2 cm from the nipple: Using an 18-gauge hypodermic needle, approximately 5 cc of dark brownish fluid was aspirated and discarded. The cyst was collapsed following aspiration. 2. Right ultrasound-guided cyst aspiration of the cyst at 11 o'clock position at 3 cm from the nipple: Using an 18-gauge hypodermic needle, approximately 6 cc of dark brownish fluid was aspirated and discarded. The cyst was collapsed following aspiration. The patient experienced no complications during the procedure. No postprocedure mammogram was obtained. Total estimated blood loss: Minimal US/US breast cyst asp RT IMPRESSION: Right ultrasound-guided cyst aspiration of cysts at 11:00 and 1:00 positions completed. Aspirated fluid discarded. Electronically signed by: Hammad York MD 12/24/2024 09:30 AM EDT
--- OUTSIDE RECORDS SUMMARY | 2024-12-24 07:54 | XMS_ITS | Encounter Summary ---
Author Organization [facility] Address [address] [facility] [address] [place] [address] Phone Care Team Providers Care Professional Soccer Player Name Role Phone Jae Rodríguez MD Primary Care Provider [phone] Encounter Details Date Type Department Care Team (Latest Contact Info) Description 12/25/2019 Transcribe Orders Virtual Department [address] [place] [phone] Zion Massey MD [address] [place] [phone] [email or web address] Muscle ache (Primary Dx) Social History Tobacco [...] (12/25/2019 3:21 PM EDT) Specimen Source [facility] Comment:Corrected on 12/24 A T 1538: previously reported as 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 YES [facility] Other 12/25/2019 3:21 PM EDT 12/25/2019 3:37 PM EDT us Zion Massey MD BODY FLUIDS AND STOOLS ORDER [facility] Edited Result - Final [address] [address] documented in this encounter Visit Diagnoses Diagnosis Muscle ache- Primary Unspecified myalgia and myositis documented in this encounter Additional Health Concerns Infection Onset Date Last Indicated Resolved Time CoV-Risk 12/25/2019 12/25/2019 01/08/2020 1:23 AM EST documented as of this encounter Care Teams Professional Soccer Player Relationship Specialty Start Date End Date Jae Rodríguez MD [address] [place] [address] PCP - General Internal Medicine 12/25/19 documented as of this encounter Additional Source Comments The information contained in this document represents components of the legal health record. It is not the complete legal health record.[facility]
--- OUTSIDE RECORDS SUMMARY | 2024-12-24 07:54 | XMS_ITS | Clinical Summary ---
Author Organization [facility] Address [address] [address] Phone Care Team Providers Care Sausage Tier Name Role Phone Jae Rodríguez MD Primary Care Provider [phone] Social History Tobacco Use Types Packs/Day Years [...] topic Medical Devices Not on file [place] [address] [place] [address] [place] [place] [address] [place] [address] [place] [address] [place] [address] [place] [address] [place] [id number] [place] [address] [place] [address] [place] [address] [place] [address] [place] [address] HMO POS Care Teams Sausage Tier Relationship Specialty Start Date End Date Jae Rodríguez MD [address] [place] [address] PCP - General Internal Medicine 12/25/19 Additional Source Comments The information contained in this document represents components of the legal health record. It is not the complete legal health record.[facility]
[2024-12-24] MEDS: Lidocaine HCl 1 % 20 ML VIAL 18 ML SUBCUT (09:12)
== END 2024-12-24 07:51 | disposition home or self-care (01) ==
LOC: HO.MAMMO 07:50
PROVIDERS: Absent Provider Obstetrics & Gynecology; PCP Internal Medicine; Visit Provider Surgery
DX: N60.01 Solitary cyst of right breast (principal)
CPT/HCPCS: 19000; 19001; J2003

== ENCOUNTER → 2024-12-24 08:00 | Outpatient (BNV) | payer OTHER, SELFPAY | PROVIDERS: Absent Provider Obstetrics & Gynecology; PCP Internal Medicine; Visit Provider Radiology Body Imaging | DX: N60.01 Solitary cyst of right breast (principal) | CPT/HCPCS: 19000; 19001 ==